=== PATIENT | female | born 1955 | race Caucasian/White ===

== ENCOUNTER 2018-09-28 06:30 | Inpatient (IN) | payer MEDICARE ==
[2018-09-27 14:14] VITALS: BMI 25.9
[2018-09-28] MEDS ORDERED: Rocuronium 10 mg/ml (5 ml) ONE (07:15)
[2018-09-28] MEDS ORDERED: Succinylcholine 200 mg/10 ml Inj IV ONE (07:15)
[2018-09-28] MEDS ORDERED: Neostigmine 1:1000 (1 mg/ml) Inj ONE (07:15)
[2018-09-28] MEDS ORDERED: Propofol 10 mg/ml Inj (20 ML) ONE (07:15)
[2018-09-28] MEDS ORDERED: Lidocaine 4% (Laryng-O-Jet) Kit MM ONE (07:15)
[2018-09-28] MEDS ORDERED: Phenylephrine 10 mg/ml Inj ONE (07:22)
[2018-09-28 07:53] LABS: BASO # 0.1 K/uL (0.0-0.2); BASO % 0.7 % (0.0-2.0); EOS # 0.3 K/uL (0.0-0.7); EOS % 2.7 % (0.0-4.0); HEMOGLOBIN 12.8 g/dL (12.0-16.0); LYMPH % 31.9 % (20.0-40.0); MEAN CELL VOLUME 88.5 fl (81.0-99.0); MEAN CORPUSCULAR HEMOGLOBIN 28.8 pg (27.0-31.0); MEAN CORPUSCULAR HGB CONC 32.6 g/dL (33.0-37.0); MEAN PLATELET VOLUME 9.4 fl (7.2-11.7); MONO # 0.8 K/uL (0.0-0.8); MONO % 8.4 % (0.0-10.0); NEUT # 5.2 K/uL (1.8-7.0); NEUT % 56.3 % (50.0-75.0); NRBC % 0.1 % (0.0-0.0); RBC 4.43 Mil/uL (3.80-5.20); RED CELL DISTRIBUTION WIDTH 13.6 % (11.5-14.5); WHITE BLOOD COUNT 9.3 K/uL (4.8-10.8)
[2018-09-28] MEDS ORDERED: Lactated Ringer's 1,000 ML IV ONE ×3 (08:15→10:21)
[2018-09-28] MEDS ORDERED: EPINEPHrine 1 mg/ml (1:1000) Inj ONE (08:17)
[2018-09-28] MEDS ORDERED: Morphine 1 mg/ml preservative-free Inj(Duramorph) ONE (08:17)
[2018-09-28] MEDS ORDERED: Sodium Chloride 0.9% 20 ML IV ONE (08:17)
[2018-09-28] MEDS ORDERED: Bupivacaine HCl 0.5% PF (30 ml) Inj ONE (08:17)
[2018-09-28] MEDS ORDERED: Dexamethasone 4 mg/1 ml ONE (08:44)
[2018-09-28] MEDS ORDERED: Sodium Chloride 0.9% 10 ML IV ONE (08:46)
[2018-09-28] MEDS ORDERED: ePHEDrine 50 mg/ml Inj ONE (08:46)
[2018-09-28] MEDS ORDERED: EPINEPHrine 1 mg/ml (1:1000) Inj IV ONE ×2 (09:14→09:45)
[2018-09-28] MEDS ORDERED: Bupivacaine 0.5% Inj(30mL) IJ ONE ×2 (09:14→09:45)
[2018-09-28] MEDS ORDERED: Sodium Chloride 0.9% Inj (10mL) IV ONE ×2 (09:15→09:45)
--- NOTE | 2018-09-28 10:32 | PCM.SURG1 ---
Surgeon's Initial Post Op Note - Surgeon's Notes Surgeon: Virginia Govea MD Advertising Agency Manager: Mark Becker PA-C; Faby Mustafa Type of Anesthesia: General Endo Pre-Operative Diagnosis: Right knee OA Operative Findings: see op report Post-Operative Diagnosis: same as pre-op dx Operation Performed: R TKR Specimen/Specimens Removed: right knee bone and soft tissue Estimated Blood Loss: EBL {In ML}: 75 Date of Surgery/Procedure: 09/28/18 Time of Surgery/Procedure: 08:45
[2018-09-28] MEDS ORDERED: Dexamethasone 4 mg/1 ml IVP PRN (10:58)
[2018-09-28] MEDS ORDERED: HYDROmorphone 0.5 mg/0.5 ml ISec IVP PRN (10:58)
--- NOTE | 2018-09-28 12:58 | RAD ---
Date of service: 09/28/2018 PROCEDURE: Right knee HISTORY: s/p RTKR COMPARISON: None TECHNIQUE: Standard protocol for this study/examination. FINDINGS: Satisfactory appearance of components right TKA. Postoperative air in soft tissues noted. IMPRESSION: Satisfactory postoperative status.
[2018-09-28] MEDS ORDERED: Fluticasone-Salmeterol 250-50mcg Diskus IH PRN (13:47)
--- NOTE | 2018-09-28 13:48 | CP.PCM.HP ---
<Mara Bhardwaj - Last Filed: 09/28/18 13:48> History of Present Illness - History of Present Illness History of Present Illness: Pt is a 63 y/o female with hx of chronic knee pain admitted for total knee replacement by Dr. Govea. Completed this morning. Patient reports mild-moderate pain. Otherwise denies any sob, chest pain, cough, dysphasia, fever/chills. PMHX: Chronic knee pain (trauma 30 years ago w/ 3 fx + osteoarthritis), Peptic Ulcer Disease, Breast Ca (chemotherapy, 6 years ago), Dry eyes, Asthma, Prediabetic SurgHx: Denies Medications: Advair, Singulair, Lifitigrast (eye drop), Omeprazole, Lipitor FmHx: denies Social: never smoked, denies heavy alcohol use or illicit drug use Operative report reviewed: Right Total Knee Replacement, EBL 75cc Present on Admission - Present on Admission Any Indicators Present on Admission: No Past Patient History - Past Medical History & Family History Past Medical History?: Yes - Past Social History Smoking Status: Never Smoked - PULMONARY Hx Asthma: Yes - HEMATOLOGICAL/ONCOLOGICAL Hx Anemia: Yes Hx Blood Transfusions: No Hx Cancer: Yes (R breast) Hx Chemotherapy: Yes (2013) - MUSCULOSKELETAL/RHEUMATOLOGICAL Hx Arthritis: Yes - GASTROINTESTINAL Hx Ulcer: Yes - SURGICAL HISTORY Hx Surgeries: Yes Hx Arthroscopy: Yes (R knee) Hx Breast Biopsy: Yes (Lumpectomy R w chemo completed) - ANESTHESIA Hx Anesthesia: Yes Hx Anesthesia Reactions: No Has any member of the family had a problem w/ anesthesia?: No Meds Allergies/Adverse Reactions: Allergies Allergy/AdvReac Type Severity Reaction Status Date / Time No Known Allergies Allergy Verified 09/27/18 14:14 Physical Exam - Constitutional Appears: No Acute Distress - Head Exam Head Exam: NORMAL INSPECTION - Eye Exam Eye Exam: Normal appearance - ENT Exam ENT Exam: Mucous Membranes Moist - Neck Exam Neck exam: Positive for: Full Rom - Respiratory Exam Respiratory Exam: Clear to Auscultation Bilateral. absent: Rales, Wheezes - Cardiovascular Exam Cardiovascular Exam: REGULAR RHYTHM, +S1, +S2. absent: Systolic Murmur - GI/Abdominal Exam GI & Abdominal Exam: Normal Bowel Sounds, Soft. absent: Tenderness - Extremities Exam Additional comments: Right leg wrapped (clean and dry) Toes visible, pink, warm, good capillary refill, motor and sensory in tact. Left leg normal - Neurological Exam Neurological exam: Alert - Psychiatric Exam Psychiatric exam: Normal Affect - Skin Skin Exam: Normal Color Results - Vital Signs Recent Vital Signs: Last Vital Signs Temp 97.3 F L 09/28/18 13:10 Pulse 73 09/28/18 13:10 Resp 18 09/28/18 13:10 BP 122/69 09/28/18 13:10 Pulse Ox 100 09/28/18 13:10 - Labs Result Diagrams: 09/28/18 07:30 Labs: Laboratory Results - last 24 hr 09/28/18 09/28/18 09/28/18 07:30 07:30 08:49 WBC 9.3 RBC 4.43 Hgb 12.8 Hct 39.2 MCV 88.5 MCH 28.8 MCHC 32.6 L RDW 13.6 Plt Count 228 MPV 9.4 Neut % (Auto) 56.3 Lymph % (Auto) 31.9 [place] % (Auto) 8.4 Eos % (Auto) 2.7 Baso % (Auto) 0.7 Neut # (Auto) 5.2 Lymph # (Auto) 3.0 [place] # (Auto) 0.8 Eos # (Auto) 0.3 Baso # (Auto) 0.1 POC Glucose (mg/dL) Blood Type O POSITIVE Blood Type Confirm O POSITIVE Antibody Screen Negative BBK History Checked No verified bt 09/28/18 11:02 WBC RBC Hgb Hct MCV MCH MCHC RDW Plt Count MPV Neut % (Auto) Lymph % (Auto) [place] % (Auto) Eos % (Auto) Baso % (Auto) Neut # (Auto) Lymph # (Auto) [place] # (Auto) Eos # (Auto) Baso # (Auto) POC Glucose (mg/dL) 127 H Blood Type Blood Type Confirm Antibody Screen BBK History Checked Assessment & Plan - Assessment and Plan (Free Text) Assessment: 63 y/o female with hx of chronic knee pain admitted for total knee replacement by Dr. Govea on 09/28/18. No complications. Hemodynamically stable post operatively. Osteoarthritis R Knee -S/P R. TKR -Ortho, Dr. Govea -Pain management as ordered -PT -home meds continued -F/u am labs -Diabetic Diet <Kali Adams - Last Filed: 09/28/18 19:21> Results - Vital Signs Recent Vital Signs: Last Vital Signs Temp 98.0 F 09/28/18 17:20 Pulse 93 H 09/28/18 17:20 Resp 18 09/28/18 17:20 BP 113/70 09/28/18 17:20 Pulse Ox 95 09/28/18 17:20 - Labs Result Diagrams: 09/28/18 07:30 Labs: Laboratory Results - last 24 hr 09/28/18 09/28/18 09/28/18 07:30 07:30 08:49 WBC 9.3 RBC 4.43 Hgb 12.8 Hct 39.2 MCV 88.5 MCH 28.8 MCHC 32.6 L RDW 13.6 Plt Count 228 MPV 9.4 Neut % (Auto) 56.3 Lymph % (Auto) 31.9 [place] % (Auto) 8.4 Eos % (Auto) 2.7 Baso % (Auto) 0.7 Neut # (Auto) 5.2 Lymph # (Auto) 3.0 [place] # (Auto) 0.8 Eos # (Auto) 0.3 Baso # (Auto) 0.1 POC Glucose (mg/dL) Blood Type O POSITIVE Blood Type Confirm O POSITIVE Antibody Screen Negative BBK History Checked No verified bt 09/28/18 11:02 WBC RBC Hgb Hct MCV MCH MCHC RDW Plt Count MPV Neut % (Auto) Lymph % (Auto) [place] % (Auto) Eos % (Auto) Baso % (Auto) Neut # (Auto) Lymph # (Auto) [place] # (Auto) Eos # (Auto) Baso # (Auto) POC Glucose (mg/dL) 127 H Blood Type Blood Type Confirm Antibody Screen BBK History Checked Attending/Attestation - Attestation I have personally seen and examined this patient.: Yes I have fully participated in the care of the patient.: Yes I have reviewed all pertinent clinical information: Yes
[2018-09-28] MEDS ORDERED: ceFAZolin IV 1 gm in Dextrose 1 GM/50 ML BAG IVPB ONE ×2 (14:30→20:30)
--- NOTE | 2018-09-28 15:49 | OP ---
PROCEDURE DATE: 09/28/2018 ATTENDING PHYSICIAN: Virginia Govea MD GIS SOFTWARE DEVELOPER: Mark Becker PA-C PREOPERATIVE DIAGNOSIS: Right knee osteoarthritis. POSTOPERATIVE DIAGNOSIS: Right knee osteoarthritis. PROCEDURE: Right total knee replacement. IMPLANTS SIZE: [employer] 2.5 femur, 1.5 tibia, 13 mm polyethylene insert, 32 mm patellar button. ANESTHESIA TYPE: General. ESTIMATED BLOOD LOSS: 100 mL. COMPLICATIONS: None. HISTORY: The patient with prolonged history of right knee pain progressively getting worse despite extensive conservative management, which included activity modification, injections, anti-inflammatory modification and physical therapy. X-rays had revealed advanced arthritis. Patient was indicated for total knee replacement due to continued pain and limited mobility. I had a detailed discussion with the patient in the office explaining the nature of the surgery, alternatives of surgery, risks and benefits, rehabilitation protocol and surgical markings. Risks of surgery include but not limited to continued pain, lack of motion, infection, vascular injury, DVT / PE, nerve injury including peroneal nerve dysfunction, reflex sympathetic dystrophy, compartment syndrome, unforeseen medical and/or anesthesia complications, limb loss, and even . The patient expressed an understanding of the risks and possible benefits of the procedure, and is also aware of the alternatives to surgery. DESCRIPTION OF PROCEDURE: On the day of the surgery, the patient was admitted to pre-operative holding area. A laterality sheet was completed confirming the correct operative site. The correct surgical knee was marked in the holding area and informed consent was signed from the patient. Once again, I reviewed the risks and benefits of the surgery with the patient in detail. These risks include but are not limited to continued pain, lack of motion, infection, vascular injury, DVT / PE, nerve injury including peroneal nerve dysfunction, reflex sympathetic dystrophy, symptomatic hardware, need for further procedure and surgeries, instability, iatrogenic fractures, compartment syndrome, unforeseen medical and/or anesthesia complications, limb loss, and even . The patient expressed an understanding of the risks and possible benefits of the procedure, also aware of the alternatives to surgery and signed the informed consent. The patient was transported to the operating room and placed in the supine position, general anesthesia was obtained. A padded tourniquet was applied to patient's operative thigh and appropriate prophylactic antibiotics were given. The operative leg was draped and prepped in standard sterile manner. Timeout was completed, confirming patient's right knee to be the correct operative site. Using an Esmarch, the extremity was exsanguinated and tourniquet was inflated to 350 mmHg. The surgical incision markings were made using patella border, tibial tubercle, patella and quadriceps tendon. Using a 10 blade, a midline incision was made. Skin dissection was taken until the prepatellar fascia was identified and the corners of the patellar tendon were marked for proper closure at the end of the procedure. Using a fresh 10 blade, a medial parapatellar arthrotomy was performed. The knee was exposed in the standard manner. The deep MCL was elevated for exposure, medial and lateral menisci were removed, ACL and PCL were also transected. The tibia was subluxed anteriorly. Planned tibial cut was made with power saw, using extra-medullary guide, perpendicular to mechanical axis of the tibia. After the cut was made, the alignment was also checked and was found to be appropriate. Tibial cut surface was measured with trial base plate and it was noted that size 1.5 tibial baseplate was provide sufficient coverage without overhang. Tibial component was externally rotated and marked. Next, the knee was placed into 90 degrees of flexion. A drill hole was made within the femoral notch anterior to PCL insertion for placement of intramedullary femoral jerrod. Intramedullary femoral jerrod was inserted within the femoral canal and planned distal femoral cut was made. After the cut, knee was brought into full extension. Spacer blocks were used to check the extension balancing both in full extension and 30 degrees of flexion. It was found that 13 mm trial spacer block allowed full extension with symmetric varus and valgus balancing. Next we proceed with Patella resurfacing. Patella width was found to 25 mm alutiiq patella width. Using the free-hand technique the arthritic patella surface was resected. Patella was sized using the guide and it was noted that 32 mm patella button size Patella dome button would be appropriate for the patient. Next the size of femoral component was determined using the posterior referencing guide. It was noted that a size 2.5 femur would be appropriate for this patient without causing any significant notching. A 4 x 1 cutting block was placed and flexion gap balancing was checked. The flexion gap was found to be symmetric to the extension gap. Anterior and posterior condyle, anterior and posterior chamfer cuts were made. Next, appropriate size box cut for femoral component was prepared using the guide. The femoral trial component was impacted onto the distal femur. Appropriate size tibial trial component was also placed on the cut surface of the tibia. Using the drill and punch, keel for tibial implant was prepared. Trial tibial tray was secured onto the tibia using pins. Different size trial polyethylene inserts were secured on to the trial tibial tray to critically assess the following parameters: Full range of motion, extension and flexion gap balancing, mid-flexion stability, anterior and posterior drawer, and patellar tracking. All parameter were found to be satisfactory with 13 mm polyethylene insert. All the trial components were removed. Implants were opened on the back table. Cement was mixed and we proceed with cement fixation of the implants. Tibial tray, femoral component and patellar dome button were secured with cement. Polyethylene insert was secured onto the tibial tray using locking mechanism. The knee was reduced and brought into full extension. Cement was allowed to harden until final component fixation. Knee was taken through the final range of motion for stability testing, and found to be satisfactory. During this procedure, I was assisted by Mark Becker PA-C who assisted in positioning the patient on the operating room table as well as transferring the patient from the operating room table to the recovery room stretcher. In addition, Mark Becker PA-C assisted me during the actual operative procedure by positioning, protecting critical neurovascular structures, exposure of the joint, and proper positioning of the implants. The presence of Mark Becker PA-C as my operative assistant brand manager was medically necessary to ensure the utmost safety of the patient in the pre, intra-, and post-operative periods. Due to the patient's previous procedure(s) performed in this area, this procedure was more difficult than a standard knee arthroscopy. This required extra time during prepping and draping, as well as an extended operative time. Because of the added complexity of the revision nature of this procedure, the length of the case was prolonged by 50%. Virginia Govea MD
[2018-09-28] MEDS ORDERED: Pneumococcal 23-Valent Vaccine IM ONE (16:00)
[2018-09-28] MEDS ORDERED: Influenza Vaccine (5 YR UP)/PF 60 MCG/0.5 ML SYR IM ONE (16:55)
[2018-09-28] MEDS: oxyCODONE 10 mg ER Tab (oxyCONTIN) PO SCH (21:17)
[2018-09-28] MEDS: Lactated Ringer's 1,000 ML IV SCH ×2 (21:18→21:19)
[2018-09-28] MEDS: oxyCODONE 5 mg Immediate Release Tab PO PRN (22:16)
[2018-09-29] MEDS: oxyCODONE 5 mg Immediate Release Tab PO PRN ×5 (02:16→20:50)
[2018-09-29 06:36] LABS: BASO % 0.1 % (0.0-2.0); EOS % 0.1 % (0.0-4.0); HEMOGLOBIN 8.9 g/dL (12.0-16.0); LYMPH # 2.8 K/uL (1.0-4.3); LYMPH % 23.2 % (20.0-40.0); MEAN CORPUSCULAR HEMOGLOBIN 28.4 pg (27.0-31.0); MEAN PLATELET VOLUME 9.1 fl (7.2-11.7); MONO # 1.3 K/uL (0.0-0.8); MONO % 10.6 % (0.0-10.0); RBC 3.15 Mil/uL (3.80-5.20); RED CELL DISTRIBUTION WIDTH 13.7 % (11.5-14.5); WHITE BLOOD COUNT 12.1 K/uL (4.8-10.8)
[2018-09-29 06:42] LABS: BLOOD UREA NITROGEN 14 mg/dl (7-17); CALCIUM 8.9 mg/dL (8.4-10.2); GFR NON-AFRICAN AMERICAN > 60
[2018-09-29] MEDS: Lactated Ringer's 1,000 ML IV SCH ×2 (09:44→17:01)
[2018-09-29] MEDS: oxyCODONE 10 mg ER Tab (oxyCONTIN) PO SCH ×2 (09:48→22:06)
[2018-09-29] MEDS: Enoxaparin 40 mg Syringe SC SCH (09:50)
[2018-09-29] MEDS: Fluticasone-Salmeterol 250-50mcg Diskus IH SCH ×2 (09:51→22:08)
[2018-09-29] MEDS: Pantoprazole 40 mg EC Tab PO SCH (09:52)
--- NOTE | 2018-09-29 11:24 | CP.PCM.PN ---
<Mara Bhardwaj - Last Filed: 09/29/18 18:06> Subjective - Date & Time of Evaluation Date of Evaluation: 09/29/18 Time of Evaluation: 09:00 - Subjective Subjective: Doing well today. No complaints. Pain controlled. Discussed plan. Objective - Vital Signs/Intake and Output Vital Signs (last 24 hours): Temp Pulse Resp BP Pulse Ox 97.8 F 66 19 97/56 L 99 09/29/18 08:17 09/29/18 08:17 09/29/18 08:17 09/29/18 08:17 09/29/18 08:17 - Medications Medications: Current Medications Acetaminophen (Tylenol 325mg Tab) 325 mg PO Q4 PRN PRN Reason: pain1-3 Last Admin: 09/29/18 04:45 Dose: 325 mg Atorvastatin Calcium (Lipitor) 20 mg PO [facility] Last Admin: 09/28/18 21:13 Dose: 20 mg Celecoxib (Celebrex) 100 mg PO Q12 [facility] Last Admin: 09/29/18 09:49 Dose: 100 mg Docusate Sodium (Colace) 100 mg PO TID [facility] Last Admin: 09/29/18 09:51 Dose: 100 mg Enoxaparin Sodium (Lovenox) 40 mg SC DAILY [facility]; Protocol Last Admin: 09/29/18 09:50 Dose: 40 mg Hydromorphone HCl (Dilaudid) 0.5 mg IVP Q4 PRN PRN Reason: Pain, severe (8-10) Last Admin: 09/28/18 15:01 Dose: 0.5 mg Lactated Ringer's (Lactated Ringer's) 1,000 mls @ 100 mls/hr IV .Q10H [facility] Last Admin: 09/29/18 09:44 Dose: Not Given Montelukast Sodium (Singulair) 10 mg PO [facility] Last Admin: 09/28/18 21:12 Dose: 10 mg Oxycodone HCl (Oxycodone Immediate Release Tab) 5 mg PO Q4 PRN PRN Reason: pain4-6 Last Admin: 09/29/18 06:30 Dose: 5 mg Oxycodone HCl (Oxycontin Extended Release Tab) 10 mg PO Q12 [facility] Stop: 10/12/18 21:01 Last Admin: 09/29/18 09:48 Dose: 10 mg Pantoprazole Sodium (Protonix Ec Tab) 40 mg PO DAILY [facility] Last Admin: 09/29/18 09:52 Dose: 40 mg Fluticasone/Salmeterol (Advair Diskus 250/50) 1 puff IH RBID [facility] Last Admin: 09/29/18 09:51 Dose: 1 puff - Labs Labs: 09/29/18 06:00 09/29/18 06:00 - Constitutional Appears: Well, No Acute Distress - Head Exam Head Exam: NORMAL INSPECTION - Eye Exam Eye Exam: Normal appearance - ENT Exam ENT Exam: Mucous Membranes Moist - Respiratory Exam Respiratory Exam: Clear to Ausculation Bilateral. absent: Rales, Wheezes - Cardiovascular Exam Cardiovascular Exam: REGULAR RHYTHM, +S1, +S2. absent: Murmur - Extremities Exam Extremities Exam: Normal Capillary Refill - Back Exam Additional comments: Right leg wrapped (clean and dry) Toes visible, pink, warm, good capillary refill, motor and sensory in tact. Left leg jena - Neurological Exam Neurological Exam: Alert - Psychiatric Exam Psychiatric exam: Normal Affect - Skin Skin Exam: Normal Color. absent: Pallor Assessment and Plan - Assessment and Plan (Free Text) Assessment: 63 y/o female with hx of chronic knee pain admitted for total knee replacement by Dr. Govea on 09/28/18. No complications. Hemodynamically stable post operatively. Osteoarthritis R Knee -S/P R. TKR, POD 1 -Hemodynamically stable, pain controlled overnight -Hg dropped from 12.1 to 8.9. Will continue to monitor. -Ortho, Dr. Gvoea -Pain management as ordered -PT--- Home PT with services, 3-5/week -home meds continued -F/u am labs -Diabetic Diet Discussed case with Dr. Adams <Kali Adams - Last Filed: 09/30/18 08:29> Objective - Vital Signs/Intake and Output Vital Signs (last 24 hours): Temp Pulse Resp BP Pulse Ox 97.8 F 91 H 19 122/75 96 09/30/18 08:18 09/30/18 08:18 09/30/18 08:18 09/30/18 08:18 09/30/18 08:18 - Medications Medications: Current Medications Acetaminophen (Tylenol 325mg Tab) 325 mg PO Q4 PRN PRN Reason: pain1-3 Last Admin: 09/29/18 04:45 Dose: 325 mg Atorvastatin Calcium (Lipitor) 20 mg PO HS [facility] Last Admin: 09/29/18 22:08 Dose: 20 mg Celecoxib (Celebrex) 100 mg PO Q12 [facility] Last Admin: 09/29/18 22:08 Dose: 100 mg Docusate Sodium (Colace) 100 mg PO TID [facility] Last Admin: 09/29/18 17:14 Dose: 100 mg Enoxaparin Sodium (Lovenox) 40 mg SC DAILY [facility]; Protocol Last Admin: 09/29/18 09:50 Dose: 40 mg Hydromorphone HCl (Dilaudid) 0.5 mg IVP Q4 PRN PRN Reason: Pain, severe (8-10) Last Admin: 09/30/18 08:03 Dose: 0.5 mg Lactated Ringer's (Lactated Ringer's) 1,000 mls @ 100 mls/hr IV .Q10H [facility] Last Admin: 09/30/18 03:48 Dose: Not Given Montelukast Sodium (Singulair) 10 mg PO HS [facility] Last Admin: 09/29/18 22:08 Dose: 10 mg Oxycodone HCl (Oxycodone Immediate Release Tab) 5 mg PO Q4 PRN PRN Reason: pain4-6 Last Admin: 09/30/18 04:24 Dose: 5 mg Oxycodone HCl (Oxycontin Extended Release Tab) 10 mg PO Q12 [facility] Stop: 10/12/18 21:01 Last Admin: 09/29/18 22:06 Dose: 10 mg Pantoprazole Sodium (Protonix Ec Tab) 40 mg PO DAILY [facility] Last Admin: 09/29/18 09:52 Dose: 40 mg Fluticasone/Salmeterol (Advair Diskus 250/50) 1 puff IH RBID [facility] Last Admin: 09/29/18 22:08 Dose: 1 puff - Labs Labs: 09/30/18 05:25 09/30/18 05:25 Attending/Attestation - Attestation I have personally seen and examined this patient.: Yes I have fully participated in the care of the patient.: Yes I have reviewed all pertinent clinical information, including history, physical exam and plan: Yes
[2018-09-30] MEDS: Lactated Ringer's 1,000 ML IV SCH (03:48)
[2018-09-30] MEDS: oxyCODONE 5 mg Immediate Release Tab PO PRN ×2 (04:24→14:01)
[2018-09-30 06:11] LABS: BASO # 0.1 K/uL (0.0-0.2); BASO % 0.7 % (0.0-2.0); EOS # 0.5 K/uL (0.0-0.7); EOS % 5.4 % (0.0-4.0); HEMOGLOBIN 8.6 g/dL (12.0-16.0); LYMPH # 3.2 K/uL (1.0-4.3); LYMPH % 34.8 % (20.0-40.0); MEAN CELL VOLUME 86.9 fl (81.0-99.0); MEAN CORPUSCULAR HEMOGLOBIN 28.9 pg (27.0-31.0); MEAN CORPUSCULAR HGB CONC 33.3 g/dL (33.0-37.0); MEAN PLATELET VOLUME 9.1 fl (7.2-11.7); MONO # 0.9 K/uL (0.0-0.8); MONO % 9.5 % (0.0-10.0); NEUT # 4.5 K/uL (1.8-7.0); NEUT % 49.6 % (50.0-75.0); NRBC % 0.1 % (0.0-0.0); RBC 2.99 Mil/uL (3.80-5.20); RED CELL DISTRIBUTION WIDTH 13.6 % (11.5-14.5); WHITE BLOOD COUNT 9.1 K/uL (4.8-10.8)
[2018-09-30 06:25] LABS: BLOOD UREA NITROGEN 15 mg/dl (7-17); CALCIUM 8.8 mg/dL (8.4-10.2); GFR NON-AFRICAN AMERICAN > 60
[2018-09-30] MEDS: oxyCODONE 10 mg ER Tab (oxyCONTIN) PO SCH (09:43)
[2018-09-30] MEDS: Enoxaparin 40 mg Syringe SC SCH (09:44)
[2018-09-30] MEDS: Fluticasone-Salmeterol 250-50mcg Diskus IH SCH (09:44)
[2018-09-30] MEDS: Pantoprazole 40 mg EC Tab PO SCH (09:45)
[2018-09-30 11:56] LABS: FERRITIN 32.1 ng/Ml (11.1-264.0)
[2018-09-30 12:10] LABS: IRON 18 ug/dL (37-170)
[2018-09-30 12:20] LABS: % IRON SATURATION 5 % (20-55); TOTAL IRON BINDING CAPACITY 356 ug/dL (250-450)
--- NOTE | 2018-09-30 13:19 | CP.PCM.DIS ---
<BentonMara - Last Filed: 09/30/18 17:22> Provider - Provider Date of Admission: 09/28/18 10:41 Attending physician: Kali Adams MD Consults: 09/30/18 12:59 Physician Consult Routine Comment: Consulting Provider: Virginia Govea Consulting Physician: Virginia Govea Reason for Consult: ortho posotp mgmt Time Spent in preparation of Discharge (in minutes): 35 Diagnosis - Discharge Diagnosis (1) S/P TKR (total knee replacement) Status: Suspected Hospital Course - Lab Results Lab Results: Most Recent Lab Values WBC 9.1 K/uL (4.8-10.8) 09/30/18 05:25 RBC 2.99 Mil/uL (3.80-5.20) L 09/30/18 05:25 Hgb 8.6 g/dL (12.0-16.0) L 09/30/18 05:25 Hct 25.9 % (34.0-47.0) L 09/30/18 05:25 MCV 86.9 fl (81.0-99.0) 09/30/18 05:25 MCH 28.9 pg (27.0-31.0) 09/30/18 05:25 MCHC 33.3 g/dL (33.0-37.0) 09/30/18 05:25 RDW 13.6 % (11.5-14.5) 09/30/18 05:25 Plt Count 145 K/uL (130-400) 09/30/18 05:25 MPV 9.1 fl (7.2-11.7) 09/30/18 05:25 Neut % (Auto) 49.6 % (50.0-75.0) L 09/30/18 05:25 Lymph % (Auto) 34.8 % (20.0-40.0) 09/30/18 05:25 Will % (Auto) 9.5 % (0.0-10.0) 09/30/18 05:25 Eos % (Auto) 5.4 % (0.0-4.0) H 09/30/18 05:25 Baso % (Auto) 0.7 % (0.0-2.0) 09/30/18 05:25 Neut # (Auto) 4.5 K/uL (1.8-7.0) 09/30/18 05:25 Lymph # (Auto) 3.2 K/uL (1.0-4.3) 09/30/18 05:25 Will # (Auto) 0.9 K/uL (0.0-0.8) H 09/30/18 05:25 Eos # (Auto) 0.5 K/uL (0.0-0.7) 09/30/18 05:25 Baso # (Auto) 0.1 K/uL (0.0-0.2) 09/30/18 05:25 Sodium 138 mmol/l (132-148) 09/30/18 05:25 Potassium 4.1 MMOL/L (3.6-5.0) 09/30/18 05:25 Chloride 102 mmol/L (98-107) 09/30/18 05:25 Carbon Dioxide 28 mmol/L (22-30) 09/30/18 05:25 Anion Gap 12 (10-20) 09/30/18 05:25 BUN 15 mg/dl (7-17) 09/30/18 05:25 Creatinine 0.7 mg/dl (0.7-1.2) 09/30/18 05:25 Est GFR ( Amer) > 60 09/30/18 05:25 Est GFR (Non-Af Amer) > 60 09/30/18 05:25 POC Glucose (mg/dL) 127 mg/dL (65-110) H 09/28/18 11:02 Random Glucose 103 mg/dL (65-105) 09/30/18 05:25 Calcium 8.8 mg/dL (8.4-10.2) 09/30/18 05:25 Iron 18 ug/dL (37-170) L 09/30/18 11:03 TIBC 356 ug/dL (250-450) 09/30/18 11:03 % Saturation 5 % (20-55) L 09/30/18 11:03 Ferritin 32.1 ng/Ml (11.1-264.0) 09/30/18 11:00 Vitamin B12 795 pg/mL (239-931) 09/30/18 11:00 Blood Type O POSITIVE 09/28/18 07:30 Blood Type Confirm O POSITIVE 09/28/18 08:49 Antibody Screen Negative 09/28/18 07:30 BBK History Checked No verified bt 09/28/18 07:30 - Hospital Course Hospital Course: Pt is a 63 y/o female with hx of chronic knee pain (Osteoarthritis) admitted for total knee replacement by Dr. Govea completed on 09/28/18. Pt was hemodynamically stable postoperatively but was noted to have Hemoglobin drop from 12.1 to 8.8. On POD 2, her hemoglobin was 8.6 suggesting stabilization. Family stated they wanted patient to go to rehab center for strength, mobility and gait training. Arrangements made for TCU. Pt is medically cleared for dsicharge. Will send patient on oral iron and continue to follow CBC at TCU. Discharge Exam - Head Exam Head Exam: NORMAL INSPECTION - Eye Exam Eye Exam: Normal appearance - ENT Exam ENT Exam: Mucous Membranes Moist - Respiratory Exam Respiratory Exam: Clear to PA & Lateral - Cardiovascular Exam Cardiovascular Exam: REGULAR RHYTHM - Extremities Exam Additional comments: Right leg wrapped (clean and dry) Toes visible, pink, warm, good capillary refill, motor and sensory in tact. Left leg jena Discharge Plan - Follow Up Plan Condition: GOOD Disposition: REHAB FACILITY/REHAB UNIT Instructions: Total Knee Replacement (DC) Additional Instructions: WEIGHT BEARING TOLERATED. RT. KNEE. CPM AT 65 DEGREE FLEXION. Referrals: Virginia Govea MD [Staff Provider] - <Kali Adams - Last Filed: 10/01/18 12:09> Provider - Provider Date of Admission: 09/28/18 10:41 Attending physician: Kali Adams MD Consults: 09/30/18 12:59 Physician Consult Routine Comment: Consulting Provider: Virginia Govea Consulting Physician: Virginia Govea Reason for Consult: ortho posotp mgmt Hospital Course - Lab Results Lab Results: Most Recent Lab Values WBC 9.1 K/uL (4.8-10.8) 09/30/18 05:25 RBC 2.99 Mil/uL (3.80-5.20) L 09/30/18 05:25 Hgb 8.6 g/dL (12.0-16.0) L 09/30/18 05:25 Hct 25.9 % (34.0-47.0) L 09/30/18 05:25 MCV 86.9 fl (81.0-99.0) 09/30/18 05:25 MCH 28.9 pg (27.0-31.0) 09/30/18 05:25 MCHC 33.3 g/dL (33.0-37.0) 09/30/18 05:25 RDW 13.6 % (11.5-14.5) 09/30/18 05:25 Plt Count 145 K/uL (130-400) 09/30/18 05:25 MPV 9.1 fl (7.2-11.7) 09/30/18 05:25 Neut % (Auto) 49.6 % (50.0-75.0) L 09/30/18 05:25 Lymph % (Auto) 34.8 % (20.0-40.0) 09/30/18 05:25 Will % (Auto) 9.5 % (0.0-10.0) 09/30/18 05:25 Eos % (Auto) 5.4 % (0.0-4.0) H 09/30/18 05:25 Baso % (Auto) 0.7 % (0.0-2.0) 09/30/18 05:25 Neut # (Auto) 4.5 K/uL (1.8-7.0) 09/30/18 05:25 Lymph # (Auto) 3.2 K/uL (1.0-4.3) 09/30/18 05:25 Will # (Auto) 0.9 K/uL (0.0-0.8) H 09/30/18 05:25 Eos # (Auto) 0.5 K/uL (0.0-0.7) 09/30/18 05:25 Baso # (Auto) 0.1 K/uL (0.0-0.2) 09/30/18 05:25 Sodium 138 mmol/l (132-148) 09/30/18 05:25 Potassium 4.1 MMOL/L (3.6-5.0) 09/30/18 05:25 Chloride 102 mmol/L (98-107) 09/30/18 05:25 Carbon Dioxide 28 mmol/L (22-30) 09/30/18 05:25 Anion Gap 12 (10-20) 09/30/18 05:25 BUN 15 mg/dl (7-17) 09/30/18 05:25 Creatinine 0.7 mg/dl (0.7-1.2) 09/30/18 05:25 Est GFR ( Amer) > 60 09/30/18 05:25 Est GFR (Non-Af Amer) > 60 09/30/18 05:25 POC Glucose (mg/dL) 127 mg/dL (65-110) H 09/28/18 11:02 Random Glucose 103 mg/dL (65-105) 09/30/18 05:25 Calcium 8.8 mg/dL (8.4-10.2) 09/30/18 05:25 Iron 18 ug/dL (37-170) L 09/30/18 11:03 TIBC 356 ug/dL (250-450) 09/30/18 11:03 % Saturation 5 % (20-55) L 09/30/18 11:03 Ferritin 32.1 ng/Ml (11.1-264.0) 09/30/18 11:00 Vitamin B12 795 pg/mL (239-931) 09/30/18 11:00 Blood Type O POSITIVE 09/28/18 07:30 Blood Type Confirm O POSITIVE 09/28/18 08:49 Antibody Screen Negative 09/28/18 07:30 BBK History Checked No verified bt 09/28/18 07:30 Attending/Attestation - Attestation I have personally seen and examined this patient.: Yes I have fully participated in the care of the patient.: Yes I have reviewed all pertinent clinical information, including history, physical exam and plan: Yes
--- NOTE | 2018-09-30 14:52 | CP.PCM.PN ---
Subjective - Date & Time of Evaluation Date of Evaluation: 09/30/18 Time of Evaluation: 14:50 - Subjective Subjective: Patient seen and examined at bedside comfortable. Pain well controlled. Tolerating PT and CPM well. Anemic this AM. No new complaints. Objective - Vital Signs/Intake and Output Vital Signs (last 24 hours): Temp Pulse Resp BP Pulse Ox 97.8 F 91 H 19 122/75 96 09/30/18 08:18 09/30/18 08:18 09/30/18 08:18 09/30/18 08:18 09/30/18 08:18 - Medications Medications: Current Medications Acetaminophen (Tylenol 325mg Tab) 325 mg PO Q4 PRN PRN Reason: pain1-3 Last Admin: 09/29/18 04:45 Dose: 325 mg Atorvastatin Calcium (Lipitor) 20 mg PO HS [facility] Last Admin: 09/29/18 22:08 Dose: 20 mg Celecoxib (Celebrex) 100 mg PO Q12 [facility] Last Admin: 09/30/18 09:44 Dose: 100 mg Docusate Sodium (Colace) 100 mg PO TID [facility] Last Admin: 09/30/18 13:40 Dose: 100 mg Enoxaparin Sodium (Lovenox) 40 mg SC DAILY [facility]; Protocol Last Admin: 09/30/18 09:44 Dose: 40 mg Ferrous Sulfate (Feosol) 325 mg PO BID [facility] Last Admin: 09/30/18 13:40 Dose: 325 mg Hydromorphone HCl (Dilaudid) 0.5 mg IVP Q4 PRN PRN Reason: Pain, severe (8-10) Last Admin: 09/30/18 08:03 Dose: 0.5 mg Lactated Ringer's (Lactated Ringer's) 1,000 mls @ 100 mls/hr IV .Q10H [facility] Last Admin: 09/30/18 03:48 Dose: Not Given Montelukast Sodium (Singulair) 10 mg PO HS [facility] Last Admin: 09/29/18 22:08 Dose: 10 mg Oxycodone HCl (Oxycodone Immediate Release Tab) 5 mg PO Q4 PRN PRN Reason: pain4-6 Last Admin: 09/30/18 14:01 Dose: 5 mg Oxycodone HCl (Oxycontin Extended Release Tab) 10 mg PO Q12 [facility] Stop: 10/12/18 21:01 Last Admin: 09/30/18 09:43 Dose: 10 mg Pantoprazole Sodium (Protonix Ec Tab) 40 mg PO DAILY [facility] Last Admin: 09/30/18 09:45 Dose: 40 mg Fluticasone/Salmeterol (Advair Diskus 250/50) 1 puff IH RBID [facility] Last Admin: 09/30/18 09:44 Dose: 1 puff - Labs Labs: 09/30/18 05:25 09/30/18 05:25 - Extremities Exam Additional comments: RLE: dressings CDI incision CDI with ailyn mild to mod swelling diffuse sensation intact SP/DP/TN motor intact EHL/FHL/TA/G pedal pulses intact calves soft NT b/l Assessment and Plan (1) S/P TKR (total knee replacement) Assessment & Plan: POD#2 s/p R TKA -pain control -monitor HGB -PT/OT WBAT -DVT ppx -dressings changed -orthopedically stable -above d/w Dr. Govea in agreement Status: Suspected
[2018-09-30 17:07] VITALS: BP 142/74; PULSE 98; RESP 18; TEMP 98.1; O2SAT 97
--- NOTE | 2018-10-03 22:05 | PQF ---
PROVIDER RESPONSE TEXT: Provider was unable to determine a response for this query. REVIEWER QUERY TEXT: Asthma Specificity and Type A history of Asthma is documented in the Medical Record. Please specify the type of asthma: Such as: -- Mild intermittent -- Mild persistent -- Moderate persistent -- Severe persistent -- Exercise induced bronchospasm -- Cough variant asthma -- Other, please specify -- Unable to determine The patient's Clinical Indicators include: Documentation of a history of Asthma. Medication: Minerva Greenberg Query created by: Oksana Rodriges on 09/29/2018 9:54 AM Electronically signed by: Kali Adams 10/03/2018 10:02 PM
--- NOTE | 2018-10-03 22:05 | PQF ---
PROVIDER RESPONSE TEXT: Provider was unable to determine a response for this query. REVIEWER QUERY TEXT: Clarification of Clinical Diagnostic Findings Please clarify documentation or clinical relevance for the clinical / diagnostic findings or whether those are insignificant or unable to be further specified. PN 09/29/18 with the following documentation: Hg dropped from 09/25 to 8.9. Will continue to monitor. Please clarify if there is an associated diagnosis or not to go along with the above documentation. The patient's Clinical Indicators include: S/P R TKR. EBL 100 ml. Intraop: 1 Liter LR CBC monitoring Query created by: Oksana Rodriges on 09/30/2018 6:50 AM Electronically signed by: Kali Adams 10/03/2018 10:02 PM
== END 2018-09-30 17:50 | DRG 470 ==
LOC: H.OPSURG 06:30 → H.MEDSURG1 10:41
PROVIDERS: ADMIT Family Medicine; ATTEND Family Medicine
PROC: 3E02340 Introduction of Influenza Vaccine into Muscle, Percutaneous Approach (ICD-10-PCS; 2018-09-28)
PROC: 3E0234Z Introduction of Serum, Toxoid and Vaccine into Muscle, Percutaneous Approach (ICD-10-PCS; 2018-09-28)
PROC: 0SRC0J9 Replacement of Right Knee Joint with Synthetic Substitute, Cemented, Open Approach (ICD-10-PCS; principal; 2018-09-28 07:45)
PROC: F07Z9FZ Gait Training/Functional Ambulation Treatment using Assistive, Adaptive, Supportive or Protective Equipment (ICD-10-PCS; 2018-09-29)
DX: M17.11 Unilateral primary osteoarthritis, right knee (principal); G89.29 Other chronic pain; D64.9 Anemia, unspecified; J45.909 Unspecified asthma, uncomplicated; R73.03 Prediabetes; Z23 Encounter for immunization; Z85.3 Personal history of malignant neoplasm of breast; Z92.21 Personal history of antineoplastic chemotherapy; Z87.11 Personal history of peptic ulcer disease

== ENCOUNTER 2018-09-30 14:50 | Inpatient (IN) | payer OTHER, MEDICARE ==
[2018-09-30] MEDS ORDERED: Fluticasone-Salmeterol 250-50mcg Diskus IH PRN (18:39)
[2018-09-30 19:45] VITALS: RESP 20
[2018-09-30] MEDS: oxyCODONE 10 mg ER Tab (oxyCONTIN) PO SCH (22:01)
[2018-10-01] MEDS: oxyCODONE 10 mg ER Tab (oxyCONTIN) PO SCH ×2 (08:18→22:41)
[2018-10-01] MEDS: Enoxaparin 40 mg Syringe SC SCH (08:19)
[2018-10-01] MEDS: Pantoprazole 40 mg EC Tab PO SCH (08:20)
[2018-10-01 10:43] LABS: BASO # 0.1 K/uL (0.0-0.2); BASO % 0.7 % (0.0-2.0); EOS # 0.6 K/uL (0.0-0.7); EOS % 6.6 % (0.0-4.0); HEMOGLOBIN 9.2 g/dL (12.0-16.0); LYMPH # 3.2 K/uL (1.0-4.3); LYMPH % 32.7 % (20.0-40.0); MEAN CELL VOLUME 86.9 fl (81.0-99.0); MEAN CORPUSCULAR HEMOGLOBIN 28.5 pg (27.0-31.0); MEAN CORPUSCULAR HGB CONC 32.8 g/dL (33.0-37.0); MONO # 0.8 K/uL (0.0-0.8); MONO % 8.6 % (0.0-10.0); NEUT % 51.4 % (50.0-75.0); RBC 3.22 Mil/uL (3.80-5.20); RED CELL DISTRIBUTION WIDTH 13.7 % (11.5-14.5); WHITE BLOOD COUNT 9.7 K/uL (4.8-10.8)
[2018-10-01] MEDS ORDERED: Bisacodyl 5mg EC Tab PO ONE (12:50)
--- NOTE | 2018-10-01 13:00 | CP.PCM.PN ---
Subjective - Date & Time of Evaluation Date of Evaluation: 10/01/18 Time of Evaluation: 12:58 - Subjective Subjective: Patient with son at bedside. She says pain is well controlled. Complains of constipation. Denies CP/SOB/dizziness/n/v/numbness/tingling. Objective - Vital Signs/Intake and Output Vital Signs (last 24 hours): Temp Pulse Resp BP Pulse Ox 98.1 F 91 H 20 110/64 96 10/01/18 08:00 10/01/18 10:00 10/01/18 08:00 10/01/18 10:00 10/01/18 10:00 - Medications Medications: Current Medications Acetaminophen (Tylenol 325mg Tab) 325 mg PO Q6 PRN PRN Reason: Fever >100.4 F Atorvastatin Calcium (Lipitor) 20 mg PO HS [facility] Last Admin: 09/30/18 22:01 Dose: 20 mg Celecoxib (Celebrex) 100 mg PO Q12 [facility] Last Admin: 10/01/18 08:19 Dose: 100 mg Docusate Sodium (Colace) 100 mg PO TID [facility] Last Admin: 10/01/18 08:19 Dose: 100 mg Enoxaparin Sodium (Lovenox) 40 mg SC DAILY [facility]; Protocol Last Admin: 10/01/18 08:19 Dose: 40 mg Ferrous Sulfate (Feosol) 325 mg PO BID [facility] Last Admin: 10/01/18 08:19 Dose: 325 mg Montelukast Sodium (Singulair) 10 mg PO HS [facility] Last Admin: 09/30/18 22:01 Dose: 10 mg Oxycodone HCl (Oxycodone Immediate Release Tab) 5 mg PO Q4 PRN PRN Reason: pain4-6 Oxycodone HCl (Oxycontin Extended Release Tab) 10 mg PO Q12 [facility] Stop: 10/03/18 21:01 Last Admin: 10/01/18 08:18 Dose: 10 mg Pantoprazole Sodium (Protonix Ec Tab) 40 mg PO DAILY [facility] Last Admin: 10/01/18 08:20 Dose: 40 mg Fluticasone/Salmeterol (Advair Diskus 250/50) 1 puff IH BID PRN PRN Reason: Wheezing Sennosides (Senokot Tab) 17.2 mg PO HS PRN PRN Reason: Constipation - Labs Labs: 10/01/18 10:29 - Extremities Exam Additional comments: Right knee: incision intact, no erythema, moderate swelling. +ROM ankle/toes, calves soft NT neg homans +DP/PT Pulses sensation intact, dressing changed. Assessment and Plan (1) Primary osteoarthritis of right knee Assessment & Plan: POD#3 s/p right TKR -on colace, will give dulcolax, and then sennakot prn hs -encourage PT/OOB -cont VTE proph -orthopedically stable -d/w Dr. Govea, agrees with above Status: Acute (2) Acute blood loss anemia Assessment & Plan: hemodynamically stable Status: Acute
[2018-10-01] MEDS: oxyCODONE 5 mg Immediate Release Tab PO PRN ×2 (13:56→20:25)
--- NOTE | 2018-10-01 18:18 | CP.PCM.CON ---
History of Present Illness - History of Present Illness History of Present Illness: Dr Jones PMR consultation on Kiki Hodges, born 1955, who has been admitted to [facility] [facility] following an elective right TKR by Dr Govea. Post op doing well and pain is controlled. She has not had a BM though for 4 days in spite of current regimen. She wants to hold off on a MO treatment so I will order a dose of lactulose and if no result will order a fleets. Review of Systems - Constitutional Constitutional: absent: Chills, Daytime Sleepiness - EENT Eyes: absent: Change in Vision Ears: absent: Ear Discharge, Ear Pain Nose/Mouth/Throat: absent: Nasal Congestion, Nasal Discharge - Cardiovascular Cardiovascular: absent: Chest Pain, Dyspnea on Exertion - Respiratory Respiratory: absent: Dyspnea, Hemoptysis, Wheezing - Gastrointestinal Gastrointestinal: Constipation. absent: Belching - Musculoskeletal Musculoskeletal: absent: Back Pain - Integumentary Integumentary: absent: Bleeding Lesions - Neurological Neurological: absent: Abnormal Movements, Numbness, Radicular Pain - Psychiatric Psychiatric: absent: Anxiety Past Patient History - Past Medical History & Family History Past Medical History?: Yes - Past Social History Smoking Status: Never Smoked Alcohol: None Drugs: Denies Home Situation {Lives}: With Family (few steps. Independent [employer]) - PULMONARY Hx Asthma: Yes - NEUROLOGICAL Hx Neurological Disorder: No - HEENT Hx HEENT Problems: No - RENAL Hx Chronic Kidney Disease: No - ENDOCRINE/METABOLIC Hx Endocrine Disorders: No - HEMATOLOGICAL/ONCOLOGICAL Hx Anemia: Yes Hx Blood Transfusions: Yes Hx Blood Transfusion Reaction: No Hx Cancer: Yes (R breast) Hx Chemotherapy: Yes (2013) - INTEGUMENTARY Hx Dermatological Problems: No - MUSCULOSKELETAL/RHEUMATOLOGICAL Hx Falls: No Hx Osteoarthritis: Yes - GASTROINTESTINAL Hx Ulcer: Yes - GENITOURINARY/GYNECOLOGICAL Hx Genitourinary Disorders: No - PSYCHIATRIC Hx Substance Use: No - SURGICAL HISTORY Hx Surgeries: Yes Hx Arthroscopy: Yes (R knee) Hx Breast Biopsy: Yes (Lumpectomy R w chemo completed) Hx Joint Replacement: Yes (r tkr 09/28/18) - ANESTHESIA Hx Anesthesia: Yes Hx Anesthesia Reactions: No Meds Allergies/Adverse Reactions: Allergies Allergy/AdvReac Type Severity Reaction Status Date / Time No Known Allergies Allergy Verified 09/30/18 18:16 - Medications Medications: Current Medications Acetaminophen (Tylenol 325mg Tab) 325 mg PO Q6 PRN PRN Reason: Fever >100.4 F Atorvastatin Calcium (Lipitor) 20 mg PO HS [facility] Last Admin: 09/30/18 22:01 Dose: 20 mg Celecoxib (Celebrex) 100 mg PO Q12 [facility] Last Admin: 10/01/18 08:19 Dose: 100 mg Docusate Sodium (Colace) 100 mg PO TID [facility] Last Admin: 10/01/18 16:10 Dose: 100 mg Enoxaparin Sodium (Lovenox) 40 mg SC DAILY [facility]; Protocol Last Admin: 10/01/18 08:19 Dose: 40 mg Ferrous Sulfate (Feosol) 325 mg PO BID [facility] Last Admin: 10/01/18 16:10 Dose: 325 mg Montelukast Sodium (Singulair) 10 mg PO HS [facility] Last Admin: 09/30/18 22:01 Dose: 10 mg Oxycodone HCl (Oxycodone Immediate Release Tab) 5 mg PO Q4 PRN PRN Reason: pain4-6 Last Admin: 10/01/18 13:56 Dose: 5 mg Oxycodone HCl (Oxycontin Extended Release Tab) 10 mg PO Q12 [facility] Stop: 10/03/18 21:01 Last Admin: 10/01/18 08:18 Dose: 10 mg Pantoprazole Sodium (Protonix Ec Tab) 40 mg PO DAILY [facility] Last Admin: 10/01/18 08:20 Dose: 40 mg Fluticasone/Salmeterol (Advair Diskus 250/50) 1 puff IH BID PRN PRN Reason: Wheezing Sennosides (Senokot Tab) 17.2 mg PO HS PRN PRN Reason: Constipation Physical Exam - Constitutional Appears: Non-toxic, No Acute Distress - Head Exam Head Exam: ATRAUMATIC, NORMAL INSPECTION, NORMOCEPHALIC - Eye Exam Eye Exam: EOMI - ENT Exam ENT Exam: Mucous Membranes Moist - Respiratory Exam Respiratory Exam: NORMAL BREATHING PATTERN - Cardiovascular Exam Cardiovascular Exam: REGULAR RHYTHM - GI/Abdominal Exam GI & Abdominal Exam: Distended. absent: Firm, Guarding - Neurological Exam Neurological exam: Alert, CN II-XII Intact, Oriented x3 - Psychiatric Exam Psychiatric exam: Normal Affect, Normal Mood - Skin Skin Exam: Warm Results - Vital Signs Recent Vital Signs: Last Vital Signs Temp 97.7 F 10/01/18 15:35 Pulse 94 H 10/01/18 15:35 Resp 20 10/01/18 15:35 BP 120/75 10/01/18 15:35 Pulse Ox 93 L 10/01/18 15:35 - Labs Result Diagrams: 10/01/18 10:29 Labs: Laboratory Results - last 24 hr 10/01/18 10:29 WBC 9.7 RBC 3.22 L Hgb 9.2 L Hct 28.0 L MCV 86.9 MCH 28.5 MCHC 32.8 L RDW 13.7 Plt Count 170 MPV 9.0 Neut % (Auto) 51.4 Lymph % (Auto) 32.7 Kendall % (Auto) 8.6 Eos % (Auto) 6.6 H Baso % (Auto) 0.7 Neut # (Auto) 5.0 Lymph # (Auto) 3.2 Kendall # (Auto) 0.8 Eos # (Auto) 0.6 Baso # (Auto) 0.1 Assessment & Plan - Assessment and Plan (Free Text) Assessment: PT/OT to continue to help increase functional independence Pain: controlled Vascular: no evidence of DVT GI: + constipation, give lactulose and then fleets if not an adequate result Patient continues to be an excellent TCU rehabilitation candidate and will have continued focused PT, OT and recreational therapy to help facilitate a safe and appropriate d/c plan
[2018-10-01] MEDS ORDERED: Lactulose 10 gm/15 ml Syrup PO PRN (18:20)
[2018-10-02] MEDS: oxyCODONE 5 mg Immediate Release Tab PO PRN ×3 (01:47→16:24)
[2018-10-02] MEDS: Enoxaparin 40 mg Syringe SC SCH (08:45)
[2018-10-02] MEDS: Pantoprazole 40 mg EC Tab PO SCH (08:47)
[2018-10-02] MEDS: oxyCODONE 10 mg ER Tab (oxyCONTIN) PO SCH ×2 (08:50→21:21)
[2018-10-02] MEDS: Fluticasone-Salmeterol 250-50mcg Diskus IH SCH (21:18)
[2018-10-03] MEDS: Fluticasone-Salmeterol 250-50mcg Diskus IH SCH ×2 (08:15→21:49)
[2018-10-03] MEDS: Enoxaparin 40 mg Syringe SC SCH (08:16)
[2018-10-03] MEDS: oxyCODONE 10 mg ER Tab (oxyCONTIN) PO SCH ×2 (08:19→21:27)
[2018-10-03] MEDS: Pantoprazole 40 mg EC Tab PO SCH (08:20)
[2018-10-03] MEDS: Mag&Al/Simet/Diphen/Lido 237 ML KIT PO SCH ×4 (11:59→23:30)
[2018-10-03] MEDS: oxyCODONE 5 mg Immediate Release Tab PO PRN (16:54)
--- NOTE | 2018-10-03 21:25 | CP.PCM.HP ---
History of Present Illness - History of Present Illness History of Present Illness: 63 y/o female with hx of chronic knee pain (Osteoarthritis) recently admitted for total knee replacement by Dr. Govea completed on 09/28/18. Pt was hemodynamically stable postoperatively but was noted to have Hemoglobin drop from 12.1 to 8.8. On POD 2, her hemoglobin was 8.6 suggesting stabilization. Patient now in TCU for further rehabilitation. Patient seen and examined at bedside. No complaints offered Present on Admission - Present on Admission Any Indicators Present on Admission: No Review of Systems - Review of Systems All systems: reviewed and no additional remarkable complaints except (mentioned above) Past Patient History - Past Medical History & Family History Past Medical History?: Yes Past Family History: Reviewed and not pertinent - Past Social History Smoking Status: Never Smoked Alcohol: None Drugs: Denies Home Situation {Lives}: With Family (few steps. Independent [employer]) - PULMONARY Hx Asthma: Yes - NEUROLOGICAL Hx Neurological Disorder: No - HEENT Hx HEENT Problems: No - RENAL Hx Chronic Kidney Disease: No - ENDOCRINE/METABOLIC Hx Endocrine Disorders: No - HEMATOLOGICAL/ONCOLOGICAL Hx Anemia: Yes Hx Blood Transfusions: Yes Hx Blood Transfusion Reaction: No Hx Cancer: Yes (R breast) Hx Chemotherapy: Yes (2013) - INTEGUMENTARY Hx Dermatological Problems: No - MUSCULOSKELETAL/RHEUMATOLOGICAL Hx Falls: No Hx Osteoarthritis: Yes - GASTROINTESTINAL Hx Ulcer: Yes - GENITOURINARY/GYNECOLOGICAL Hx Genitourinary Disorders: No - PSYCHIATRIC Hx Substance Use: No - SURGICAL HISTORY Hx Surgeries: Yes Hx Arthroscopy: Yes (R knee) Hx Breast Biopsy: Yes (Lumpectomy R w chemo completed) Hx Joint Replacement: Yes (r tkr 09/28/18) - ANESTHESIA Hx Anesthesia: Yes Hx Anesthesia Reactions: No Meds Allergies/Adverse Reactions: Allergies Allergy/AdvReac Type Severity Reaction Status Date / Time No Known Allergies Allergy Verified 09/30/18 18:16 Physical Exam - Constitutional Appears: Non-toxic, No Acute Distress - Head Exam Head Exam: NORMAL INSPECTION - Eye Exam Eye Exam: Normal appearance - Respiratory Exam Respiratory Exam: NORMAL BREATHING PATTERN - Cardiovascular Exam Cardiovascular Exam: +S1, +S2 - Neurological Exam Neurological exam: Alert, Oriented x3 - Psychiatric Exam Psychiatric exam: Normal Affect, Normal Mood - Skin Skin Exam: Normal Color, Warm Results - Vital Signs Recent Vital Signs: Last Vital Signs Temp 98.4 F 10/03/18 20:36 Pulse 96 H 10/03/18 20:36 Resp 20 10/03/18 20:36 BP 109/67 10/03/18 20:36 Pulse Ox 95 10/03/18 20:36 - Labs Result Diagrams: 10/01/18 10:29 Assessment & Plan - Assessment and Plan (Free Text) Assessment: 63 y/o female with hx of chronic knee pain admitted for total knee replacement by Dr. Govea on 09/28/18. Now in TCU for further rehab. plan monitor vitals monitor labs all diagnostic data reviewed consult Dr Jones consult Dr Govea continue with PT/OT meds as ordered rest of plan as ordered
--- NOTE | 2018-10-03 21:31 | CP.PCM.PN ---
Subjective - Date & Time of Evaluation Date of Evaluation: 10/02/18 Time of Evaluation: 11:00 - Subjective Subjective: patient seen and examined at bedside no complaints offered at this time no cp/sob doing well with PT/OT Objective - Vital Signs/Intake and Output Vital Signs (last 24 hours): Temp Pulse Resp BP Pulse Ox 98.4 F 96 H 20 109/67 95 10/03/18 20:36 10/03/18 20:36 10/03/18 20:36 10/03/18 20:36 10/03/18 20:36 - Medications Medications: Current Medications Acetaminophen (Tylenol 325mg Tab) 325 mg PO Q6 PRN PRN Reason: Fever >100.4 F Atorvastatin Calcium (Lipitor) 20 mg PO [facility] Last Admin: 10/02/18 21:19 Dose: 20 mg Celecoxib (Celebrex) 100 mg PO Q12 [facility] Last Admin: 10/03/18 08:18 Dose: 100 mg Docusate Sodium (Colace) 100 mg PO TID [facility] Last Admin: 10/03/18 16:55 Dose: 100 mg Enoxaparin Sodium (Lovenox) 40 mg SC DAILY [facility]; Protocol Last Admin: 10/03/18 08:16 Dose: 40 mg Ferrous Sulfate (Feosol) 325 mg PO BID [facility] Last Admin: 10/03/18 16:58 Dose: 325 mg Lactulose (Enulose) 30 gm PO DAILY PRN PRN Reason: Constipation Last Admin: 10/01/18 20:27 Dose: 30 gm Montelukast Sodium (Singulair) 10 mg PO [facility] Last Admin: 10/02/18 21:24 Dose: 10 mg Oxycodone HCl (Oxycodone Immediate Release Tab) 5 mg PO Q4 PRN PRN Reason: pain4-6 Last Admin: 10/03/18 16:54 Dose: 5 mg Pantoprazole Sodium (Protonix Ec Tab) 40 mg PO DAILY [facility] Last Admin: 10/03/18 08:20 Dose: 40 mg Saliva Substitute (First Magic Mouthwash) 5 ml PO Q4H [facility] Last Admin: 10/03/18 16:55 Dose: 5 ml Fluticasone/Salmeterol (Advair Diskus 250/50) 1 puff IH Q12 [facility] Last Admin: 10/03/18 08:15 Dose: 1 puff Sennosides (Senokot Tab) 17.2 mg PO HS PRN PRN Reason: Constipation Last Admin: 10/03/18 16:56 Dose: 17.2 mg - Labs Labs: 10/01/18 10:29 - Additional Findings Additional findings: - Constitutional Appears: Non-toxic, No Acute Distress - Head Exam Head Exam: NORMAL INSPECTION - Eye Exam Eye Exam: Normal appearance - Respiratory Exam Respiratory Exam: NORMAL BREATHING PATTERN - Cardiovascular Exam Cardiovascular Exam: +S1, +S2 - Neurological Exam Neurological exam: Alert, Oriented x3 - Psychiatric Exam Psychiatric exam: Normal Affect, Normal Mood - Skin Skin Exam: Normal Color, Warm Assessment and Plan - Assessment and Plan (Free Text) Assessment: 63 y/o female with hx of chronic knee pain admitted for total knee replacement by Dr. Govea on 09/28/18. Now in TCU for further rehab. plan monitor vitals all diagnostic data reviewed consulted Dr Jones consulted Dr Govea continue with PT/OT meds as ordered rest of plan as ordered
--- NOTE | 2018-10-03 21:32 | CP.PCM.PN ---
Subjective - Date & Time of Evaluation Date of Evaluation: 10/03/18 Time of Evaluation: 11:00 - Subjective Subjective: patient seen and examined at bedside no complaints offered at this time no cp/sob doing well with PT/OT Objective - Vital Signs/Intake and Output Vital Signs (last 24 hours): Temp Pulse Resp BP Pulse Ox 98.4 F 96 H 20 109/67 95 10/03/18 20:36 10/03/18 20:36 10/03/18 20:36 10/03/18 20:36 10/03/18 20:36 - Medications Medications: Current Medications Acetaminophen (Tylenol 325mg Tab) 325 mg PO Q6 PRN PRN Reason: Fever >100.4 F Atorvastatin Calcium (Lipitor) [address] [facility] Last Admin: 10/02/18 21:19 Dose: 20 mg Celecoxib (Celebrex) 100 mg PO Q12 [facility] Last Admin: 10/03/18 08:18 Dose: 100 mg Docusate Sodium (Colace) 100 mg PO TID [facility] Last Admin: 10/03/18 16:55 Dose: 100 mg Enoxaparin Sodium (Lovenox) 40 mg SC DAILY [facility]; Protocol Last Admin: 10/03/18 08:16 Dose: 40 mg Ferrous Sulfate (Feosol) 325 mg PO BID [facility] Last Admin: 10/03/18 16:58 Dose: 325 mg Lactulose (Enulose) 30 gm PO DAILY PRN PRN Reason: Constipation Last Admin: 10/01/18 20:27 Dose: 30 gm Montelukast Sodium (Singulair) [address] [facility] Last Admin: 10/02/18 21:24 Dose: 10 mg Oxycodone HCl (Oxycodone Immediate Release Tab) 5 mg PO Q4 PRN PRN Reason: pain4-6 Last Admin: 10/03/18 16:54 Dose: 5 mg Pantoprazole Sodium (Protonix Ec Tab) 40 mg PO DAILY [facility] Last Admin: 10/03/18 08:20 Dose: 40 mg Saliva Substitute (First Magic Mouthwash) 5 ml PO Q4H [facility] Last Admin: 10/03/18 16:55 Dose: 5 ml Fluticasone/Salmeterol (Advair Diskus 250/50) 1 puff IH Q12 [facility] Last Admin: 10/03/18 08:15 Dose: 1 puff Sennosides (Senokot Tab) 17.2 mg PO HS PRN PRN Reason: Constipation Last Admin: 10/03/18 16:56 Dose: 17.2 mg - Labs Labs: 10/01/18 10:29 - Additional Findings Additional findings: - Constitutional Appears: Non-toxic, No Acute Distress - Head Exam Head Exam: NORMAL INSPECTION - Eye Exam Eye Exam: Normal appearance - Respiratory Exam Respiratory Exam: NORMAL BREATHING PATTERN - Cardiovascular Exam Cardiovascular Exam: +S1, +S2 - Neurological Exam Neurological exam: Alert, Oriented x3 - Psychiatric Exam Psychiatric exam: Normal Affect, Normal Mood - Skin Skin Exam: Normal Color, Warm Assessment and Plan - Assessment and Plan (Free Text) Assessment: 63 y/o female with hx of chronic knee pain admitted for total knee replacement by Dr. Govea on 09/28/18. Now in TCU for further rehab. plan monitor vitals all diagnostic data reviewed consulted Dr Jones consulted Dr Govea continue with PT/OT meds as ordered rest of plan as ordered
[2018-10-04] MEDS: Mag&Al/Simet/Diphen/Lido 237 ML KIT PO SCH ×6 (03:30→23:30)
[2018-10-04] MEDS: oxyCODONE 5 mg Immediate Release Tab PO PRN ×2 (06:39→16:36)
[2018-10-04] MEDS: Fluticasone-Salmeterol 250-50mcg Diskus IH SCH ×2 (08:00→21:38)
[2018-10-04] MEDS: Enoxaparin 40 mg Syringe SC SCH (08:02)
[2018-10-04] MEDS: oxyCODONE 10 mg ER Tab (oxyCONTIN) PO SCH ×2 (08:09→21:40)
[2018-10-04] MEDS: Pantoprazole 40 mg EC Tab PO SCH (08:10)
--- NOTE | 2018-10-04 13:15 | CP.PCM.PN ---
Subjective - Date & Time of Evaluation Date of Evaluation: 10/04/18 Time of Evaluation: 10:00 - Subjective Subjective: Patient states she is feeling a little better, still has a pain and stiffness in knee. Objective - Vital Signs/Intake and Output Vital Signs (last 24 hours): Temp Pulse Resp BP Pulse Ox 97.1 F L 97 H 20 131/88 98 10/04/18 07:56 10/04/18 07:56 10/04/18 07:56 10/04/18 07:56 10/04/18 07:56 - Medications Medications: Current Medications Acetaminophen (Tylenol 325mg Tab) 325 mg PO Q6 PRN PRN Reason: Fever >100.4 F Atorvastatin Calcium (Lipitor) 20 mg PO [facility] Last Admin: 10/03/18 21:50 Dose: 20 mg Celecoxib (Celebrex) 100 mg PO Q12 [facility] Last Admin: 10/04/18 08:03 Dose: 100 mg Docusate Sodium (Colace) 100 mg PO TID [facility] Last Admin: 10/04/18 12:53 Dose: 100 mg Enoxaparin Sodium (Lovenox) 40 mg SC DAILY [facility]; Protocol Last Admin: 10/04/18 08:02 Dose: 40 mg Ferrous Sulfate (Feosol) 325 mg PO BID [facility] Last Admin: 10/04/18 08:03 Dose: 325 mg Lactulose (Enulose) 30 gm PO DAILY PRN PRN Reason: Constipation Last Admin: 10/01/18 20:27 Dose: 30 gm Montelukast Sodium (Singulair) 10 mg PO [facility] Last Admin: 10/03/18 21:50 Dose: 10 mg Ondansetron HCl (Zofran Odt) 4 mg PO Q6 PRN PRN Reason: Nausea/Vomiting Last Admin: 10/04/18 12:53 Dose: 4 mg Oxycodone HCl (Oxycodone Immediate Release Tab) 5 mg PO Q4 PRN PRN Reason: pain4-6 Last Admin: 10/04/18 06:39 Dose: 5 mg Oxycodone HCl (Oxycontin Extended Release Tab) 10 mg PO Q12 [facility] Stop: 10/07/18 09:01 Last Admin: 10/04/18 08:09 Dose: Not Given Pantoprazole Sodium (Protonix Ec Tab) 40 mg PO DAILY [facility] Last Admin: 10/04/18 08:10 Dose: 40 mg Saliva Substitute (First Magic Mouthwash) 5 ml PO Q4H [facility] Last Admin: 10/04/18 12:53 Dose: 5 ml Fluticasone/Salmeterol (Advair Diskus 250/50) 1 puff IH Q12 [facility] Last Admin: 10/04/18 08:00 Dose: 1 puff Sennosides (Senokot Tab) 17.2 mg PO HS PRN PRN Reason: Constipation Last Admin: 10/04/18 08:02 Dose: 17.2 mg - Labs Labs: 10/01/18 10:29 - Extremities Exam Additional comments: Right knee: incision intact, dry, no erythema +ROM ankel/otes, sensation itnact, +DP/PT pulses calves soft NT neg homans Assessment and Plan (1) Primary osteoarthritis of right knee Assessment & Plan: POD#6 s/p right TKR ortho stable PT/OT VTE proph d/w Dr. Govea, agrees with above Status: Acute (2) Acute blood loss anemia Assessment & Plan: stable Status: Acute
--- NOTE | 2018-10-04 18:18 | CP.PCM.PN ---
Subjective - Date & Time of Evaluation Date of Evaluation: 10/04/18 Time of Evaluation: 18:17 - Subjective Subjective: Patient seen in the room smiling and in good spirits denies sob/cp + constipation again but no pain ambulating 125' with RW making good gains continue current care. Objective - Vital Signs/Intake and Output Vital Signs (last 24 hours): Temp Pulse Resp BP Pulse Ox 98.7 F 86 20 102/66 95 10/04/18 16:21 10/04/18 16:21 10/04/18 16:21 10/04/18 16:21 10/04/18 16:21 - Medications Medications: Current Medications Acetaminophen (Tylenol 325mg Tab) 325 mg PO Q6 PRN PRN Reason: Fever >100.4 F Atorvastatin Calcium (Lipitor) 20 mg PO HS [facility] Last Admin: 10/03/18 21:50 Dose: 20 mg Celecoxib (Celebrex) 100 mg PO Q12 [facility] Last Admin: 10/04/18 08:03 Dose: 100 mg Docusate Sodium (Colace) 100 mg PO TID [facility] Last Admin: 10/04/18 16:31 Dose: 100 mg Enoxaparin Sodium (Lovenox) 40 mg SC DAILY [facility]; Protocol Last Admin: 10/04/18 08:02 Dose: 40 mg Ferrous Sulfate (Feosol) 325 mg PO BID [facility] Last Admin: 10/04/18 16:31 Dose: 325 mg Lactulose (Enulose) 30 gm PO DAILY PRN PRN Reason: Constipation Last Admin: 10/01/18 20:27 Dose: 30 gm Montelukast Sodium (Singulair) 10 mg PO [facility] Last Admin: 10/03/18 21:50 Dose: 10 mg Ondansetron HCl (Zofran Odt) 4 mg PO Q6 PRN PRN Reason: Nausea/Vomiting Last Admin: 10/04/18 12:53 Dose: 4 mg Oxycodone HCl (Oxycodone Immediate Release Tab) 5 mg PO Q4 PRN PRN Reason: pain4-6 Last Admin: 10/04/18 16:36 Dose: 5 mg Oxycodone HCl (Oxycontin Extended Release Tab) 10 mg PO Q12 [facility] Stop: 10/07/18 09:01 Last Admin: 10/04/18 08:09 Dose: Not Given Pantoprazole Sodium (Protonix Ec Tab) 40 mg PO DAILY [facility] Last Admin: 10/04/18 08:10 Dose: 40 mg Saliva Substitute (First Magic Mouthwash) 5 ml PO Q4H [facility] Last Admin: 10/04/18 16:31 Dose: 5 ml Fluticasone/Salmeterol (Advair Diskus 250/50) 1 puff IH Q12 [facility] Last Admin: 10/04/18 08:00 Dose: 1 puff Sennosides (Senokot Tab) 17.2 mg PO HS PRN PRN Reason: Constipation Last Admin: 10/04/18 08:02 Dose: 17.2 mg - Labs Labs: 10/01/18 10:29
[2018-10-05] MEDS: Mag&Al/Simet/Diphen/Lido 237 ML KIT PO SCH ×6 (03:30→23:30)
[2018-10-05] MEDS: Fluticasone-Salmeterol 250-50mcg Diskus IH SCH ×2 (08:11→22:29)
[2018-10-05] MEDS: Enoxaparin 40 mg Syringe SC SCH (08:12)
[2018-10-05] MEDS: oxyCODONE 10 mg ER Tab (oxyCONTIN) PO SCH ×2 (08:12→22:30)
[2018-10-05] MEDS: Pantoprazole 40 mg EC Tab PO SCH (08:13)
[2018-10-05] MEDS: oxyCODONE 5 mg Immediate Release Tab PO PRN (16:58)
[2018-10-06] MEDS: Mag&Al/Simet/Diphen/Lido 237 ML KIT PO SCH ×6 (04:05→22:56)
[2018-10-06] MEDS: oxyCODONE 5 mg Immediate Release Tab PO PRN ×2 (05:07→13:23)
[2018-10-06] MEDS: Fluticasone-Salmeterol 250-50mcg Diskus IH SCH ×2 (08:24→21:45)
[2018-10-06] MEDS: Enoxaparin 40 mg Syringe SC SCH ×2 (08:25→17:16)
[2018-10-06] MEDS: oxyCODONE 10 mg ER Tab (oxyCONTIN) PO SCH ×2 (08:25→21:44)
[2018-10-06] MEDS: Pantoprazole 40 mg EC Tab PO SCH (08:26)
--- NOTE | 2018-10-06 18:24 | CP.PCM.PN ---
Subjective - Date & Time of Evaluation Date of Evaluation: 10/06/18 Time of Evaluation: 18:23 - Subjective Subjective: Patient seen in the room doing well ambulating 150' and doing 12 steps some right ankle pain and I ordered ice. No significant swelling or ecchymosis present + constipation still will order a fleets Objective - Vital Signs/Intake and Output Vital Signs (last 24 hours): Temp Pulse Resp BP Pulse Ox 97.6 F 86 20 104/66 98 10/06/18 15:51 10/06/18 15:51 10/06/18 15:51 10/06/18 15:51 10/06/18 15:51 - Medications Medications: Current Medications Acetaminophen (Tylenol 325mg Tab) 325 mg PO Q6 PRN PRN Reason: Fever >100.4 F Atorvastatin Calcium (Lipitor) 20 mg PO HS [facility] Last Admin: 10/05/18 22:30 Dose: 20 mg Celecoxib (Celebrex) 100 mg PO Q12 [facility] Last Admin: 10/06/18 08:25 Dose: 100 mg Docusate Sodium (Colace) 100 mg PO TID [facility] Last Admin: 10/06/18 17:49 Dose: 100 mg Enoxaparin Sodium (Lovenox) 40 mg SC DAILY [facility]; Protocol Last Admin: 10/06/18 17:16 Dose: Not Given Ferrous Sulfate (Feosol) 325 mg PO BID [facility] Last Admin: 10/06/18 17:49 Dose: 325 mg Lactulose (Enulose) 30 gm PO DAILY PRN PRN Reason: Constipation Last Admin: 10/04/18 22:35 Dose: 30 gm Montelukast Sodium (Singulair) [address] [facility] Last Admin: 10/05/18 22:31 Dose: 10 mg Ondansetron HCl (Zofran Odt) 4 mg PO Q6 PRN PRN Reason: Nausea/Vomiting Last Admin: 10/05/18 16:58 Dose: 4 mg Oxycodone HCl (Oxycodone Immediate Release Tab) 5 mg PO Q4 PRN PRN Reason: pain4-6 Last Admin: 10/06/18 13:23 Dose: 5 mg Oxycodone HCl (Oxycontin Extended Release Tab) 10 mg PO Q12 [facility] Stop: 10/07/18 09:01 Last Admin: 10/06/18 08:25 Dose: 10 mg Pantoprazole Sodium (Protonix Ec Tab) 40 mg PO DAILY [facility] Last Admin: 10/06/18 08:26 Dose: 40 mg Saliva Substitute (First Magic Mouthwash) 5 ml PO Q4H [facility] Last Admin: 10/06/18 15:52 Dose: Not Given Fluticasone/Salmeterol (Advair Diskus 250/50) 1 puff IH Q12 [facility] Last Admin: 10/06/18 08:24 Dose: 1 puff Sennosides (Senokot Tab) 17.2 mg PO HS PRN PRN Reason: Constipation Last Admin: 10/05/18 22:34 Dose: 17.2 mg - Labs Labs: 10/01/18 10:29
[2018-10-07] MEDS: oxyCODONE 5 mg Immediate Release Tab PO PRN ×2 (00:53→12:16)
[2018-10-07] MEDS: Mag&Al/Simet/Diphen/Lido 237 ML KIT PO SCH ×6 (03:00→23:31)
[2018-10-07] MEDS: Enoxaparin 40 mg Syringe SC SCH (08:31)
[2018-10-07] MEDS: Fluticasone-Salmeterol 250-50mcg Diskus IH SCH ×2 (08:31→21:34)
[2018-10-07] MEDS: oxyCODONE 10 mg ER Tab (oxyCONTIN) PO SCH ×2 (08:32→21:34)
[2018-10-07] MEDS: Pantoprazole 40 mg EC Tab PO SCH (08:35)
--- NOTE | 2018-10-07 14:05 | CP.PCM.PN ---
Subjective - Date & Time of Evaluation Date of Evaluation: 10/07/18 Time of Evaluation: 14:03 - Subjective Subjective: Patient complaining of knee pain, but not taking pain medication. Encouraged to take medication as needed especially to improve PT tolerance Objective - Vital Signs/Intake and Output Vital Signs (last 24 hours): Temp Pulse Resp BP Pulse Ox 98.3 F 82 20 106/67 95 10/07/18 08:06 10/07/18 08:06 10/07/18 08:06 10/07/18 08:06 10/07/18 08:06 - Medications Medications: Current Medications Acetaminophen (Tylenol 325mg Tab) 325 mg PO Q6 PRN PRN Reason: Fever >100.4 F Atorvastatin Calcium (Lipitor) 20 mg PO [facility] Last Admin: 10/06/18 21:46 Dose: 20 mg Celecoxib (Celebrex) 100 mg PO Q12 [facility] Last Admin: 10/07/18 08:33 Dose: 100 mg Docusate Sodium (Colace) 100 mg PO TID [facility] Last Admin: 10/07/18 12:21 Dose: 100 mg Enoxaparin Sodium (Lovenox) 40 mg SC DAILY [facility]; Protocol Last Admin: 10/07/18 08:31 Dose: 40 mg Ferrous Sulfate (Feosol) 325 mg PO BID [facility] Last Admin: 10/07/18 08:32 Dose: 325 mg Lactulose (Enulose) 30 gm PO DAILY PRN PRN Reason: Constipation Last Admin: 10/04/18 22:35 Dose: 30 gm Montelukast Sodium (Singulair) 10 mg PO [facility] Last Admin: 10/06/18 21:46 Dose: 10 mg Ondansetron HCl (Zofran Odt) 4 mg PO Q6 PRN PRN Reason: Nausea/Vomiting Last Admin: 10/07/18 08:32 Dose: 4 mg Oxycodone HCl (Oxycodone Immediate Release Tab) 5 mg PO Q4 PRN PRN Reason: pain4-6 Last Admin: 10/07/18 12:16 Dose: 5 mg Pantoprazole Sodium (Protonix Ec Tab) 40 mg PO DAILY [facility] Last Admin: 10/07/18 08:35 Dose: 40 mg Saliva Substitute (First Magic Mouthwash) 5 ml PO Q4H [facility] Last Admin: 10/07/18 12:18 Dose: 5 ml Fluticasone/Salmeterol (Advair Diskus 250/50) 1 puff IH Q12 [facility] Last Admin: 10/07/18 08:31 Dose: 1 puff Sennosides (Senokot Tab) 17.2 mg PO HS PRN PRN Reason: Constipation Last Admin: 10/06/18 21:47 Dose: 17.2 mg - Labs Labs: 10/01/18 10:29 - Extremities Exam Additional comments: Right knee: incision intact, dry, no erythema +ROM ankle/toes, sensation itnact, +DP/PT pulses calves soft NT neg homans Assessment and Plan (1) Primary osteoarthritis of right knee Assessment & Plan: POD#8 s/p right TKR ortho stable PT/OT VTE proph d/w Dr. Govea, agrees with above Status: Acute (2) Acute blood loss anemia Status: Acute
[2018-10-07 15:01] VITALS: BMI 28.2
--- NOTE | 2018-10-07 16:22 | CP.PCM.PCO ---
Physician Communication Note - Physician Communication Note Physician Communication Note: Clarification, Hx of asthma, mild persistent
--- NOTE | 2018-10-07 16:24 | CP.PCM.PCO ---
Physician Communication Note - Physician Communication Note Physician Communication Note: Clarification: Hg 12 to 8.9 Anemia secondary to acute blood loss
[2018-10-07] MEDS: Lidocaine 5% Patch TD SCH (18:25)
--- NOTE | 2018-10-07 18:26 | CP.PCM.PN ---
Subjective - Date & Time of Evaluation Date of Evaluation: 10/07/18 Time of Evaluation: 18:25 - Subjective Subjective: Patient seen in the room still with right ankle pain there is some ecchymosis on the lateral aspect she is getting ice pain meds help some doing very well in PT no reason to suspect any significant injury to the right ankle given the fu nctional ability and no history of injury I will nonetheless get an x-ray she refused the fleets still constipated Objective - Vital Signs/Intake and Output Vital Signs (last 24 hours): Temp Pulse Resp BP Pulse Ox 97.6 F 86 20 112/69 98 10/07/18 17:21 10/07/18 17:21 10/07/18 17:21 10/07/18 17:21 10/07/18 17:21 - Medications Medications: Current Medications Acetaminophen (Tylenol 325mg Tab) 650 mg PO Q6 [facility] Last Admin: 10/07/18 17:13 Dose: 650 mg Atorvastatin Calcium (Lipitor) 20 mg PO HS [facility] Last Admin: 10/06/18 21:46 Dose: 20 mg Calcium/Vitamin D (Oyster Shell Calcium/Vitamin D 500 Mg-200 Iu) 1 tab PO DAILY [facility] Celecoxib (Celebrex) 100 mg PO Q12 [facility] Last Admin: 10/07/18 08:33 Dose: 100 mg Cholecalciferol (Vitamin D) 1,000 intlu PO DAILY [facility] Docusate Sodium (Colace) 100 mg PO TID [facility] Last Admin: 10/07/18 17:15 Dose: 100 mg Enoxaparin Sodium (Lovenox) 40 mg SC DAILY [facility]; Protocol Last Admin: 10/07/18 08:31 Dose: 40 mg Ferrous Sulfate (Feosol) 325 mg PO BID [facility] Last Admin: 10/07/18 17:13 Dose: 325 mg Lactulose (Enulose) 30 gm PO DAILY PRN PRN Reason: Constipation Last Admin: 10/04/18 22:35 Dose: 30 gm Lidocaine (Lidoderm) 1 ea TD DAILY [facility] Montelukast Sodium (Singulair) 10 mg PO HS [facility] Last Admin: 10/06/18 21:46 Dose: 10 mg Ondansetron HCl (Zofran Odt) 4 mg PO Q6 PRN PRN Reason: Nausea/Vomiting Last Admin: 10/07/18 08:32 Dose: 4 mg Oxycodone HCl (Oxycodone Immediate Release Tab) 5 mg PO Q4 PRN PRN Reason: pain4-6 Last Admin: 10/07/18 12:16 Dose: 5 mg Pantoprazole Sodium (Protonix Ec Tab) 40 mg PO DAILY [facility] Last Admin: 10/07/18 08:35 Dose: 40 mg Saliva Substitute (First Magic Mouthwash) 5 ml PO Q4H [facility] Last Admin: 10/07/18 15:30 Dose: 5 ml Fluticasone/Salmeterol (Advair Diskus 250/50) 1 puff IH Q12 [facility] Last Admin: 10/07/18 08:31 Dose: 1 puff Sennosides (Senokot Tab) 17.2 mg PO HS PRN PRN Reason: Constipation Last Admin: 10/06/18 21:47 Dose: 17.2 mg - Labs Labs: 10/01/18 10:29
[2018-10-08] MEDS: Mag&Al/Simet/Diphen/Lido 237 ML KIT PO SCH ×5 (04:15→22:03)
--- NOTE | 2018-10-08 08:20 | RAD ---
Date of service: 10/07/2018 PROCEDURE: Right Ankle Radiographs. HISTORY: ankle pain and ecchymosis COMPARISON: None available. FINDINGS: BONES: No acute fracture or destructive bony lesion identified. JOINTS: Talar dome is intact with ankle mortise maintained. No subluxation or dislocation appreciated. SOFT TISSUES: Normal. OTHER FINDINGS: None. IMPRESSION: Unremarkable right ankle radiographs.
[2018-10-08] MEDS: Lidocaine 5% Patch TD SCH (08:23)
[2018-10-08] MEDS: Fluticasone-Salmeterol 250-50mcg Diskus IH SCH ×2 (08:24→22:03)
[2018-10-08] MEDS: oxyCODONE 10 mg ER Tab (oxyCONTIN) PO SCH ×2 (08:24→22:02)
[2018-10-08] MEDS: Enoxaparin 40 mg Syringe SC SCH (08:25)
[2018-10-08] MEDS: Pantoprazole 40 mg EC Tab PO SCH (08:27)
[2018-10-08] MEDS: Cholecalciferol 1,000 INTLU TAB PO SCH (08:27)
[2018-10-08] MEDS: Calcium-Vit D 500 mg-200 Units Tab UD PO SCH (08:29)
[2018-10-08] MEDS: oxyCODONE 5 mg Immediate Release Tab PO PRN (19:21)
[2018-10-09] MEDS: Mag&Al/Simet/Diphen/Lido 237 ML KIT PO SCH ×6 (03:47→23:37)
[2018-10-09] MEDS: oxyCODONE 10 mg ER Tab (oxyCONTIN) PO SCH ×2 (08:49→22:45)
[2018-10-09] MEDS: Enoxaparin 40 mg Syringe SC SCH (08:50)
[2018-10-09] MEDS: Lidocaine 5% Patch TD SCH (08:50)
[2018-10-09] MEDS: Fluticasone-Salmeterol 250-50mcg Diskus IH SCH ×2 (08:50→22:41)
[2018-10-09] MEDS: Calcium-Vit D 500 mg-200 Units Tab UD PO SCH (08:52)
[2018-10-09] MEDS: Cholecalciferol 1,000 INTLU TAB PO SCH (08:52)
[2018-10-09] MEDS: Pantoprazole 40 mg EC Tab PO SCH (08:52)
--- NOTE | 2018-10-09 17:32 | CP.PCM.PN ---
Subjective - Date & Time of Evaluation Date of Evaluation: 10/09/18 Time of Evaluation: 17:31 - Subjective Subjective: Patient seen in the room doing well right ankle sleeve machine tender x-ray was normal with no fracture continued improvement in gait I had to again let her know that there is only time that is appropriate for the right ankle pain and that it will improve continue current care Objective - Vital Signs/Intake and Output Vital Signs (last 24 hours): Temp Pulse Resp BP Pulse Ox 98.5 F 84 20 107/56 L 96 10/09/18 15:53 10/09/18 15:53 10/09/18 15:53 10/09/18 15:53 10/09/18 15:53 - Medications Medications: Current Medications Acetaminophen (Tylenol 325mg Tab) 650 mg PO Q6 [facility] Last Admin: 10/09/18 16:17 Dose: 650 mg Atorvastatin Calcium (Lipitor) 20 mg PO HS [facility] Last Admin: 10/08/18 22:02 Dose: 20 mg Calcium/Vitamin D (Oyster Shell Calcium/Vitamin D 500 Mg-200 Iu) 1 tab PO DAILY [facility] Last Admin: 10/09/18 08:52 Dose: 1 tab Celecoxib (Celebrex) 100 mg PO Q12 [facility] Last Admin: 10/09/18 08:51 Dose: 100 mg Cholecalciferol (Vitamin D) 1,000 intlu PO DAILY [facility] Last Admin: 10/09/18 08:52 Dose: 1,000 intlu Docusate Sodium (Colace) 100 mg PO TID [facility] Last Admin: 10/09/18 16:18 Dose: 100 mg Enoxaparin Sodium (Lovenox) 40 mg SC DAILY [facility]; Protocol Last Admin: 10/09/18 08:50 Dose: 40 mg Ferrous Sulfate (Feosol) 325 mg PO BID [facility] Last Admin: 10/09/18 16:17 Dose: 325 mg Lactulose (Enulose) 30 gm PO DAILY PRN PRN Reason: Constipation Last Admin: 10/08/18 16:36 Dose: 30 gm Lidocaine (Lidoderm) 1 ea TD DAILY [facility] Last Admin: 10/09/18 08:50 Dose: 1 ea Montelukast Sodium (Singulair) 10 mg PO HS [facility] Last Admin: 10/08/18 22:03 Dose: 10 mg Ondansetron HCl (Zofran Odt) 4 mg PO Q6 PRN PRN Reason: Nausea/Vomiting Last Admin: 10/09/18 09:05 Dose: 4 mg Oxycodone HCl (Oxycodone Immediate Release Tab) 5 mg PO Q4 PRN PRN Reason: pain4-6 Last Admin: 10/08/18 19:21 Dose: 5 mg Oxycodone HCl (Oxycontin Extended Release Tab) 10 mg PO Q12 [facility] Stop: 10/10/18 21:01 Last Admin: 10/09/18 08:49 Dose: 10 mg Pantoprazole Sodium (Protonix Ec Tab) 40 mg PO DAILY [facility] Last Admin: 10/09/18 08:52 Dose: 40 mg Saliva Substitute (First Magic Mouthwash) 5 ml PO Q4H [facility] Last Admin: 10/09/18 16:18 Dose: 5 ml Fluticasone/Salmeterol (Advair Diskus 250/50) 1 puff IH Q12 [facility] Last Admin: 10/09/18 08:50 Dose: 1 puff Sennosides (Senokot Tab) 17.2 mg PO HS PRN PRN Reason: Constipation Last Admin: 10/08/18 22:02 Dose: 17.2 mg - Labs Labs: 10/01/18 10:29
[2018-10-10] MEDS: Mag&Al/Simet/Diphen/Lido 237 ML KIT PO SCH ×6 (04:19→23:30)
[2018-10-10] MEDS: oxyCODONE 10 mg ER Tab (oxyCONTIN) PO SCH ×2 (08:39→21:49)
[2018-10-10] MEDS: Fluticasone-Salmeterol 250-50mcg Diskus IH SCH ×2 (08:40→21:47)
[2018-10-10] MEDS: Lidocaine 5% Patch TD SCH (08:40)
[2018-10-10] MEDS: Pantoprazole 40 mg EC Tab PO SCH (08:41)
[2018-10-10] MEDS: Enoxaparin 40 mg Syringe SC SCH (08:41)
[2018-10-10] MEDS: Calcium-Vit D 500 mg-200 Units Tab UD PO SCH (08:41)
[2018-10-10] MEDS: Cholecalciferol 1,000 INTLU TAB PO SCH (08:41)
[2018-10-11] MEDS: Mag&Al/Simet/Diphen/Lido 237 ML KIT PO SCH ×6 (04:03→23:04)
[2018-10-11] MEDS: oxyCODONE 5 mg Immediate Release Tab PO PRN ×2 (09:42→17:17)
[2018-10-11] MEDS: Enoxaparin 40 mg Syringe SC SCH (09:43)
[2018-10-11] MEDS: Fluticasone-Salmeterol 250-50mcg Diskus IH SCH ×2 (09:43→20:16)
[2018-10-11] MEDS: Calcium-Vit D 500 mg-200 Units Tab UD PO SCH (09:44)
[2018-10-11] MEDS: Lidocaine 5% Patch TD SCH (09:44)
[2018-10-11] MEDS: Cholecalciferol 1,000 INTLU TAB PO SCH (09:45)
[2018-10-11] MEDS: Pantoprazole 40 mg EC Tab PO SCH (09:45)
--- NOTE | 2018-10-11 10:24 | CP.PCM.PN ---
Subjective - Date & Time of Evaluation Date of Evaluation: 10/11/18 Time of Evaluation: 08:00 - Subjective Subjective: Patient seen and examined at bedside comfortable. Pain well controlled. Tolerating PT well. No new complaints. Objective - Vital Signs/Intake and Output Vital Signs (last 24 hours): Temp Pulse Resp BP Pulse Ox 97.7 F 80 20 108/65 97 10/10/18 20:03 10/10/18 20:03 10/10/18 20:03 10/10/18 20:03 10/10/18 20:03 - Medications Medications: Current Medications Acetaminophen (Tylenol 325mg Tab) 650 mg PO Q6 [facility] Last Admin: 10/11/18 10:20 Dose: Not Given Atorvastatin Calcium (Lipitor) 20 mg PO HS [facility] Last Admin: 10/10/18 21:49 Dose: 20 mg Calcium/Vitamin D (Oyster Shell Calcium/Vitamin D 500 Mg-200 Iu) 1 tab PO DAILY [facility] Last Admin: 10/11/18 09:44 Dose: 1 tab Celecoxib (Celebrex) 100 mg PO Q12 [facility] Last Admin: 10/11/18 09:44 Dose: 100 mg Cholecalciferol (Vitamin D) 1,000 intlu PO DAILY [facility] Last Admin: 10/11/18 09:45 Dose: 1,000 intlu Docusate Sodium (Colace) 100 mg PO TID [facility] Last Admin: 10/11/18 09:44 Dose: 100 mg Enoxaparin Sodium (Lovenox) 40 mg SC DAILY [facility]; Protocol Last Admin: 10/11/18 09:43 Dose: 40 mg Ferrous Sulfate (Feosol) 325 mg PO BID [facility] Last Admin: 10/11/18 09:44 Dose: 325 mg Lactulose (Enulose) 30 gm PO DAILY PRN PRN Reason: Constipation Last Admin: 10/09/18 18:05 Dose: 30 gm Lidocaine (Lidoderm) 1 ea TD DAILY [facility] Last Admin: 10/11/18 09:44 Dose: 1 ea Montelukast Sodium (Singulair) 10 mg PO HS [facility] Last Admin: 10/10/18 21:51 Dose: 10 mg Ondansetron HCl (Zofran Odt) 4 mg PO Q6 PRN PRN Reason: Nausea/Vomiting Last Admin: 10/09/18 09:05 Dose: 4 mg Oxycodone HCl (Oxycodone Immediate Release Tab) 5 mg PO Q4 PRN PRN Reason: pain4-6 Last Admin: 10/11/18 09:42 Dose: 5 mg Pantoprazole Sodium (Protonix Ec Tab) 40 mg PO DAILY [facility] Last Admin: 10/11/18 09:45 Dose: 40 mg Saliva Substitute (First Magic Mouthwash) 5 ml PO Q4H [facility] Last Admin: 10/11/18 07:06 Dose: Not Given Fluticasone/Salmeterol (Advair Diskus 250/50) 1 puff IH Q12 [facility] Last Admin: 10/11/18 09:43 Dose: 1 puff Sennosides (Senokot Tab) 17.2 mg PO HS PRN PRN Reason: Constipation Last Admin: 10/10/18 21:51 Dose: 17.2 mg - Labs Labs: 10/01/18 10:29 - Extremities Exam Additional comments: RLE: dressings CDI incision CDI with ailyn mild to mod swelling diffuse improved sensation intact SP/DP/TN motor intact EHL/FHL/TA/G pedal pulses intact calves soft NT b/l Assessment and Plan (1) S/P TKR (total knee replacement) Assessment & Plan: POD#13 s/p R TKA -PT/OT WBAT -DVT ppx -orthopedically stable -above d/w Dr. Govea in agreement Status: Suspected
--- NOTE | 2018-10-11 19:01 | CP.PCM.PN ---
Subjective - Date & Time of Evaluation Date of Evaluation: 10/11/18 Time of Evaluation: 19:00 - Subjective Subjective: Patient seen in the room and still with right ankle pain no significant laxity or swelling ecchymosis is improved good ROM right knee, ailyn, CDI discussed d/c plans and care at length will d/c ailyn, discussed with Dr Govea she will be d/c'd 10/14/18 Objective - Vital Signs/Intake and Output Vital Signs (last 24 hours): Temp Pulse Resp BP Pulse Ox 98.1 F 90 20 120/84 98 10/11/18 17:23 10/11/18 17:23 10/11/18 17:23 10/11/18 17:23 10/11/18 17:23 - Medications Medications: Current Medications Acetaminophen (Tylenol 325mg Tab) 650 mg PO Q6 [facility] Last Admin: 10/11/18 17:19 Dose: Not Given Atorvastatin Calcium (Lipitor) 20 mg PO HS [facility] Last Admin: 10/10/18 21:49 Dose: 20 mg Calcium/Vitamin D (Oyster Shell Calcium/Vitamin D 500 Mg-200 Iu) 1 tab PO DAILY [facility] Last Admin: 10/11/18 09:44 Dose: 1 tab Celecoxib (Celebrex) 100 mg PO Q12 [facility] Last Admin: 10/11/18 09:44 Dose: 100 mg Cholecalciferol (Vitamin D) 1,000 intlu PO DAILY [facility] Last Admin: 10/11/18 09:45 Dose: 1,000 intlu Docusate Sodium (Colace) 100 mg PO TID [facility] Last Admin: 10/11/18 17:18 Dose: 100 mg Enoxaparin Sodium (Lovenox) 40 mg SC DAILY [facility]; Protocol Last Admin: 10/11/18 09:43 Dose: 40 mg Ferrous Sulfate (Feosol) 325 mg PO BID [facility] Last Admin: 10/11/18 17:18 Dose: 325 mg Lactulose (Enulose) 30 gm PO DAILY PRN PRN Reason: Constipation Last Admin: 10/09/18 18:05 Dose: 30 gm Lidocaine (Lidoderm) 1 ea TD DAILY [facility] Last Admin: 10/11/18 09:44 Dose: 1 ea Montelukast Sodium (Singulair) 10 mg PO HS [facility] Last Admin: 10/10/18 21:51 Dose: 10 mg Ondansetron HCl (Zofran Odt) 4 mg PO Q6 PRN PRN Reason: Nausea/Vomiting Last Admin: 10/09/18 09:05 Dose: 4 mg Oxycodone HCl (Oxycodone Immediate Release Tab) 5 mg PO Q4 PRN PRN Reason: pain4-6 Last Admin: 10/11/18 17:17 Dose: 5 mg Pantoprazole Sodium (Protonix Ec Tab) 40 mg PO DAILY [facility] Last Admin: 10/11/18 09:45 Dose: 40 mg Saliva Substitute (First Magic Mouthwash) 5 ml PO Q4H [facility] Last Admin: 10/11/18 17:17 Dose: 5 ml Fluticasone/Salmeterol (Advair Diskus 250/50) 1 puff IH Q12 [facility] Last Admin: 10/11/18 09:43 Dose: 1 puff Sennosides (Senokot Tab) 17.2 mg PO HS PRN PRN Reason: Constipation Last Admin: 10/10/18 21:51 Dose: 17.2 mg - Labs Labs: 10/01/18 10:29
[2018-10-12] MEDS: Mag&Al/Simet/Diphen/Lido 237 ML KIT PO SCH ×6 (04:26→22:49)
[2018-10-12] MEDS: Enoxaparin 40 mg Syringe SC SCH (09:14)
[2018-10-12] MEDS: Fluticasone-Salmeterol 250-50mcg Diskus IH SCH ×2 (09:15→21:29)
[2018-10-12] MEDS: Lidocaine 5% Patch TD SCH (09:15)
[2018-10-12] MEDS: Calcium-Vit D 500 mg-200 Units Tab UD PO SCH (09:17)
[2018-10-12] MEDS: Pantoprazole 40 mg EC Tab PO SCH (09:18)
[2018-10-12] MEDS: Cholecalciferol 1,000 INTLU TAB PO SCH (09:18)
--- NOTE | 2018-10-12 17:50 | CP.PCM.PN ---
Subjective - Date & Time of Evaluation Date of Evaluation: 10/12/18 Time of Evaluation: 17:47 - Subjective Subjective: Kiki Hodges, born 1955, who has been admitted to [address] [facility] following an elective right TKR by Dr Govea. Post op doing well and pain is controlled. Has had some right ankle pain with x-ray negative for bone injury or soft tissue swelling POD #14, ailyn to be removed. I discussed with Dr Govea Objective - Vital Signs/Intake and Output Vital Signs (last 24 hours): Temp Pulse Resp BP Pulse Ox 98.4 F 87 20 129/76 100 10/12/18 15:48 10/12/18 15:48 10/12/18 15:48 10/12/18 15:48 10/12/18 15:48 - Medications Medications: Current Medications Acetaminophen (Tylenol 325mg Tab) 650 mg PO Q6 [facility] Last Admin: 10/12/18 16:51 Dose: 650 mg Atorvastatin Calcium (Lipitor) 20 mg PO HS [facility] Last Admin: 10/11/18 22:09 Dose: 20 mg Calcium/Vitamin D (Oyster Shell Calcium/Vitamin D 500 Mg-200 Iu) 1 tab PO DAILY [facility] Last Admin: 10/12/18 09:17 Dose: 1 tab Celecoxib (Celebrex) 100 mg PO Q12 [facility] Last Admin: 10/12/18 09:43 Dose: 100 mg Cholecalciferol (Vitamin D) 1,000 intlu PO DAILY [facility] Last Admin: 10/12/18 09:18 Dose: 1,000 intlu Docusate Sodium (Colace) 100 mg PO TID [facility] Last Admin: 10/12/18 16:53 Dose: 100 mg Enoxaparin Sodium (Lovenox) 40 mg SC DAILY [facility]; Protocol Last Admin: 10/12/18 09:14 Dose: 40 mg Ferrous Sulfate (Feosol) 325 mg PO BID [facility] Last Admin: 10/12/18 16:53 Dose: 325 mg Lactulose (Enulose) 30 gm PO DAILY PRN PRN Reason: Constipation Last Admin: 10/11/18 21:56 Dose: 30 gm Lidocaine (Lidoderm) 1 ea TD DAILY [facility] Last Admin: 10/12/18 09:15 Dose: 1 ea Montelukast Sodium (Singulair) 10 mg PO HS [facility] Last Admin: 10/11/18 22:08 Dose: 10 mg Ondansetron HCl (Zofran Odt) 4 mg PO Q6 PRN PRN Reason: Nausea/Vomiting Last Admin: 10/12/18 09:18 Dose: 4 mg Oxycodone HCl (Oxycodone Immediate Release Tab) 5 mg PO Q4 PRN PRN Reason: pain4-6 Last Admin: 10/11/18 17:17 Dose: 5 mg Pantoprazole Sodium (Protonix Ec Tab) 40 mg PO DAILY [facility] Last Admin: 10/12/18 09:18 Dose: 40 mg Saliva Substitute (First Magic Mouthwash) 5 ml PO Q4H [facility] Last Admin: 10/12/18 16:52 Dose: 5 ml Fluticasone/Salmeterol (Advair Diskus 250/50) 1 puff IH Q12 [facility] Last Admin: 10/12/18 09:15 Dose: 1 puff Sennosides (Senokot Tab) 17.2 mg PO HS PRN PRN Reason: Constipation Last Admin: 10/10/18 21:51 Dose: 17.2 mg - Labs Labs: 10/01/18 10:29 - Constitutional Appears: Non-toxic, No Acute Distress - Head Exam Head Exam: ATRAUMATIC, NORMAL INSPECTION, NORMOCEPHALIC - Eye Exam Eye Exam: EOMI, Normal appearance - ENT Exam ENT Exam: Mucous Membranes Moist - Respiratory Exam Respiratory Exam: NORMAL BREATHING PATTERN - GI/Abdominal Exam GI & Abdominal Exam: absent: Distended - Neurological Exam Neurological Exam: Alert, Awake, CN II-XII Intact, Oriented x3 - Psychiatric Exam Psychiatric exam: Normal Affect, Normal Mood - Skin Skin Exam: Warm Assessment and Plan - Assessment and Plan (Free Text) Assessment: Dr Jones PMR consultation on Kiki Hodges, born 1955, who has been admitted to [facility] following an elective right TKR by Dr Govea. Post op doing well and pain is controlled. Has done very well with therapies and doing the stairs as well I have d/c'd the ailyn without incident. Cleaned with betadine before and after. There is some scabbing that will block full approximation at this time and did some manual debridement of the scabbing with the betadine swab. Steri- strips applied and ranged the knee to make sure they will withstand the ROM set for d/c home 10/14/18
[2018-10-13] MEDS: Mag&Al/Simet/Diphen/Lido 237 ML KIT PO SCH ×5 (03:36→21:56)
[2018-10-13] MEDS: Lidocaine 5% Patch TD SCH (09:04)
[2018-10-13] MEDS: Enoxaparin 40 mg Syringe SC SCH (09:04)
[2018-10-13] MEDS: Cholecalciferol 1,000 INTLU TAB PO SCH (09:05)
[2018-10-13] MEDS: Fluticasone-Salmeterol 250-50mcg Diskus IH SCH ×2 (09:05→21:55)
[2018-10-13] MEDS: Calcium-Vit D 500 mg-200 Units Tab UD PO SCH (09:07)
[2018-10-13] MEDS: Pantoprazole 40 mg EC Tab PO SCH (09:07)
--- NOTE | 2018-10-13 18:38 | CP.PCM.PN ---
Subjective - Date & Time of Evaluation Date of Evaluation: 10/13/18 Time of Evaluation: 18:37 - Subjective Subjective: Patient seen in the room doing well still noting ankle pain and again went over the fact that there was no fracture she is ambulating well can follow up as an outpatient with Dr Govea for the ankle concern incision line looks good. + steristrips d/c home tomorrow Objective - Vital Signs/Intake and Output Vital Signs (last 24 hours): Temp Pulse Resp BP Pulse Ox 98.0 F 90 20 128/81 100 10/13/18 16:29 10/13/18 16:29 10/13/18 16:29 10/13/18 16:29 10/13/18 16:29 - Medications Medications: Current Medications Acetaminophen (Tylenol 325mg Tab) 650 mg PO Q6 [facility] Last Admin: 10/13/18 16:26 Dose: 650 mg Atorvastatin Calcium (Lipitor) 20 mg PO HS [facility] Last Admin: 10/12/18 21:24 Dose: 20 mg Calcium/Vitamin D (Oyster Shell Calcium/Vitamin D 500 Mg-200 Iu) 1 tab PO DAILY [facility] Last Admin: 10/13/18 09:07 Dose: 1 tab Celecoxib (Celebrex) 100 mg PO Q12 [facility] Last Admin: 10/13/18 09:07 Dose: 100 mg Cholecalciferol (Vitamin D) 1,000 intlu PO DAILY [facility] Last Admin: 10/13/18 09:05 Dose: 1,000 intlu Docusate Sodium (Colace) 100 mg PO TID [facility] Last Admin: 10/13/18 16:25 Dose: 100 mg Enoxaparin Sodium (Lovenox) 40 mg SC DAILY [facility]; Protocol Last Admin: 10/13/18 09:04 Dose: 40 mg Ferrous Sulfate (Feosol) 325 mg PO BID [facility] Last Admin: 10/13/18 16:25 Dose: 325 mg Lactulose (Enulose) 30 gm PO DAILY PRN PRN Reason: Constipation Last Admin: 10/11/18 21:56 Dose: 30 gm Lidocaine (Lidoderm) 1 ea TD DAILY [facility] Last Admin: 10/13/18 09:04 Dose: 1 ea Montelukast Sodium (Singulair) 10 mg PO HS [facility] Last Admin: 10/12/18 21:24 Dose: 10 mg Ondansetron HCl (Zofran Odt) 4 mg PO Q6 PRN PRN Reason: Nausea/Vomiting Last Admin: 10/13/18 09:08 Dose: 4 mg Oxycodone HCl (Oxycodone Immediate Release Tab) 5 mg PO Q4 PRN PRN Reason: pain4-6 Last Admin: 10/11/18 17:17 Dose: 5 mg Pantoprazole Sodium (Protonix Ec Tab) 40 mg PO DAILY [facility] Last Admin: 10/13/18 09:07 Dose: 40 mg Saliva Substitute (First Magic Mouthwash) 5 ml PO Q4H [facility] Last Admin: 10/13/18 16:26 Dose: 5 ml Fluticasone/Salmeterol (Advair Diskus 250/50) 1 puff IH Q12 [facility] Last Admin: 10/13/18 09:05 Dose: 1 puff Sennosides (Senokot Tab) 17.2 mg PO HS PRN PRN Reason: Constipation Last Admin: 10/12/18 21:40 Dose: 17.2 mg - Labs Labs: 10/01/18 10:29
[2018-10-14] MEDS: Mag&Al/Simet/Diphen/Lido 237 ML KIT PO SCH ×4 (01:08→12:15)
[2018-10-14 08:08] VITALS: BP 119/68; PULSE 73; TEMP 98; O2SAT 100
[2018-10-14] MEDS: Fluticasone-Salmeterol 250-50mcg Diskus IH SCH (09:15)
[2018-10-14] MEDS: Lidocaine 5% Patch TD SCH (09:16)
[2018-10-14] MEDS: Enoxaparin 40 mg Syringe SC SCH (09:17)
[2018-10-14] MEDS: Pantoprazole 40 mg EC Tab PO SCH (09:17)
[2018-10-14] MEDS: Calcium-Vit D 500 mg-200 Units Tab UD PO SCH (09:17)
[2018-10-14] MEDS: Cholecalciferol 1,000 INTLU TAB PO SCH (09:18)
--- NOTE | 2018-10-14 10:07 | CP.PCM.PN ---
Subjective - Date & Time of Evaluation Date of Evaluation: 10/14/18 Time of Evaluation: 08:00 - Subjective Subjective: Patient seen and examined at bedside. Pain well controlled. To d/c home today . No new complaints. Objective - Vital Signs/Intake and Output Vital Signs (last 24 hours): Temp Pulse Resp BP Pulse Ox 98.0 F 73 20 119/68 100 10/14/18 08:07 10/14/18 08:07 10/14/18 08:07 10/14/18 08:07 10/14/18 08:07 - Medications Medications: Current Medications Acetaminophen (Tylenol 325mg Tab) 650 mg PO Q6 [facility] Last Admin: 10/14/18 09:20 Dose: 650 mg Atorvastatin Calcium (Lipitor) 20 mg PO HS [facility] Last Admin: 10/13/18 22:06 Dose: 20 mg Calcium/Vitamin D (Oyster Shell Calcium/Vitamin D 500 Mg-200 Iu) 1 tab PO DAILY [facility] Last Admin: 10/14/18 09:17 Dose: 1 tab Celecoxib (Celebrex) 100 mg PO Q12 [facility] Last Admin: 10/14/18 09:15 Dose: 100 mg Cholecalciferol (Vitamin D) 1,000 intlu PO DAILY [facility] Last Admin: 10/14/18 09:18 Dose: 1,000 intlu Docusate Sodium (Colace) 100 mg PO TID [facility] Last Admin: 10/14/18 09:16 Dose: 100 mg Enoxaparin Sodium (Lovenox) 40 mg SC DAILY [facility]; Protocol Last Admin: 10/14/18 09:17 Dose: 40 mg Ferrous Sulfate (Feosol) 325 mg PO BID [facility] Last Admin: 10/14/18 09:20 Dose: 325 mg Lactulose (Enulose) 30 gm PO DAILY PRN PRN Reason: Constipation Last Admin: 10/11/18 21:56 Dose: 30 gm Lidocaine (Lidoderm) 1 ea TD DAILY [facility] Last Admin: 10/14/18 09:16 Dose: 1 ea Montelukast Sodium (Singulair) 10 mg PO HS [facility] Last Admin: 10/13/18 21:58 Dose: 10 mg Ondansetron HCl (Zofran Odt) 4 mg PO Q6 PRN PRN Reason: Nausea/Vomiting Last Admin: 10/14/18 09:23 Dose: 4 mg Oxycodone HCl (Oxycodone Immediate Release Tab) 5 mg PO Q4 PRN PRN Reason: pain4-6 Last Admin: 10/11/18 17:17 Dose: 5 mg Pantoprazole Sodium (Protonix Ec Tab) 40 mg PO DAILY [facility] Last Admin: 10/14/18 09:17 Dose: 40 mg Saliva Substitute (First Magic Mouthwash) 5 ml PO Q4H [facility] Last Admin: 10/14/18 07:50 Dose: Not Given Fluticasone/Salmeterol (Advair Diskus 250/50) 1 puff IH Q12 [facility] Last Admin: 10/14/18 09:15 Dose: 1 puff Sennosides (Senokot Tab) 17.2 mg PO HS PRN PRN Reason: Constipation Last Admin: 10/12/18 21:40 Dose: 17.2 mg - Labs Labs: 18 10:29 - Extremities Exam Additional comments: RLE: incision CDI , no drainage sensation intact SP/DP/TN motor intact EHL/FHL/TA/G pedal pulses intact calves soft NT b/l Assessment and Plan (1) S/P TKR (total knee replacement) Assessment & Plan: POD#16 s/p R TKA -PT/OT WBAT -DVT ppx -orthopedically stable -f/u in office within 2 weeks -above d/w Dr. Govea in agreement Status: Suspected
[2018-10-14] MEDS ORDERED: Lactulose 10 gm/15 ml Syrup PO PRN (10:30)
--- NOTE | 2018-10-14 12:36 | CP.PCM.DIS ---
Provider - Provider Date of Admission: 09/30/18 18:19 Attending physician: Kali Adams MD Primary care physician: Dr. Veronica Lofton Consults: 09/30/18 18:27 Case Management Referral Routine Comment: Physician Instructions: Reason For Exam: Reason for Referral: Discharge Planning 09/30/18 18:31 Physiatry Consult Routine Comment: Consulting Provider: Obey Jones Consulting Physician: Obey Jones Reason for Consult: s/p rt tkr 09/30/18 18:39 Orthopedic Consult Routine Comment: Consulting Provider: Virginia Govea Consulting Physician: Virginia Govea Reason for Consult: s/p rt tkr 10/01/18 02:12 Pastoral Care Referral Routine Comment: Physician Instructions: Reason For Exam: advance directive information Time Spent in preparation of Discharge (in minutes): 35 Diagnosis - Discharge Diagnosis (1) S/P TKR (total knee replacement) Status: Acute Hospital Course - Lab Results Lab Results: Most Recent Lab Values WBC 9.7 K/uL (4.8-10.8) 10/01/18 10:29 RBC 3.22 Mil/uL (3.80-5.20) L 10/01/18 10:29 Hgb 9.2 g/dL (12.0-16.0) L 10/01/18 10:29 Hct 28.0 % (34.0-47.0) L 10/01/18 10:29 MCV 86.9 fl (81.0-99.0) 10/01/18 10:29 MCH 28.5 pg (27.0-31.0) 10/01/18 10:29 MCHC 32.8 g/dL (33.0-37.0) L 10/01/18 10:29 RDW 13.7 % (11.5-14.5) 10/01/18 10:29 Plt Count 170 K/uL (130-400) 10/01/18 10:29 MPV 9.0 fl (7.2-11.7) 10/01/18 10:29 Neut % (Auto) 51.4 % (50.0-75.0) 10/01/18 10:29 Lymph % (Auto) 32.7 % (20.0-40.0) 10/01/18 10:29 [place] % (Auto) 8.6 % (0.0-10.0) 10/01/18 10:29 Eos % (Auto) 6.6 % (0.0-4.0) H 10/01/18 10:29 Baso % (Auto) 0.7 % (0.0-2.0) 10/01/18 10:29 Neut # (Auto) 5.0 K/uL (1.8-7.0) 10/01/18 10:29 Lymph # (Auto) 3.2 K/uL (1.0-4.3) 10/01/18 10:29 [place] # (Auto) 0.8 K/uL (0.0-0.8) 10/01/18 10:29 Eos # (Auto) 0.6 K/uL (0.0-0.7) 10/01/18 10:29 Baso # (Auto) 0.1 K/uL (0.0-0.2) 10/01/18 10:29 25-OH Vitamin D Total 25.3 NG/ML (30.0-100.0) L 10/05/18 05:40 - Hospital Course Hospital Course: 63 yo female with hx of chronic knee pain (osteoarthritis) was admitted to transitional care unit for rehab after total knee replacement on 09/[address] Govea. Post-op she was hemodynamically stable, had initial drop in Hgb to 8.8, then recovery to 9.2 on admission to TCU, suggesting stabilization. She has remained hemodynamically stable since admission to TCU, with stable vital signs. She has been participating in physical therapy since admission and has been cleared for discharge by rehab team and ortho teams. [place] removed from knee incision. Pt was seen this morning with Dr. English. In good spirits, comfortable. Stable for d/c. Advised to f/u with her PMD in 1 week, and with ortho Dr. Govea in 2 weeks as per ortho team. As per discussion with ortho PA, to take aspirin 325 mg BID until appointment with ortho. May continue celebrex. Other home meds to be resumed. Discharge Exam - Head Exam Head Exam: ATRAUMATIC, NORMAL INSPECTION, NORMOCEPHALIC - Eye Exam Eye Exam: EOMI, Normal appearance - Respiratory Exam Respiratory Exam: NORMAL BREATHING PATTERN, UNREMARKABLE - Cardiovascular Exam Cardiovascular Exam: REGULAR RHYTHM - Extremities Exam Additional comments: No calf tenderness; right knee with well healing incision, steri strips in place, no erythema or redness. - Neurological Exam Neurological exam: Alert - Skin Skin Exam: Normal Color, Warm Discharge Plan - Discharge Medications Prescriptions: Aspirin 325 mg PO BID 14 Days tab Celecoxib [celeBREX] 100 mg PO Q12 #20 cap Ondansetron ODT [Zofran ODT] 4 mg PO Q6 PRN #12 odt PRN Reason: Nausea/Vomiting - Follow Up Plan Condition: GOOD Disposition: HOME/ ROUTINE Instructions: Osteoarthritis (DC), Total Knee Replacement (DC), Surgical Wound (DC), Preventing Falls Additional Instructions: Please follow up with your primary care doctor in 1 week. Please follow up with orthopedic surgeon Dr. Nguyen in 2 weeks. Continue your home medications as prescribed by PMD. Referrals: Virginia Govea MD [Staff Provider] -
== END 2018-10-14 14:41 | disposition home health service (06) | DRG 560 ==
LOC: H.TCU 18:19
PROVIDERS: ADMIT Family Medicine; ATTEND Family Medicine
PROC: F07Z9FZ Gait Training/Functional Ambulation Treatment using Assistive, Adaptive, Supportive or Protective Equipment (ICD-10-PCS; principal; 2018-09-30)
PROC: F08Z4FZ Home Management Treatment using Assistive, Adaptive, Supportive or Protective Equipment (ICD-10-PCS; 2018-09-30)
PROC: F07L6FZ Therapeutic Exercise Treatment of Musculoskeletal System - Lower Back / Lower Extremity using Assistive, Adaptive, Supportive or Protective Equipment (ICD-10-PCS; 2018-09-30)
DX: Z47.1 Aftercare following joint replacement surgery (principal); D62 Acute posthemorrhagic anemia; Z96.651 Presence of right artificial knee joint; M17.11 Unilateral primary osteoarthritis, right knee; K59.00 Constipation, unspecified; J45.30 Mild persistent asthma, uncomplicated